=== PATIENT | female | born 1970 | race Caucasian/White ===

== ENCOUNTER 2024-06-02 22:46 | Emergency (ER) | payer OTHER, SELFPAY ==
[2024-06-02 23:03] VITALS: BP 118/99; PULSE 67; RESP 16; TEMP 36.4; O2SAT 98; BMI 35.5
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
--- NOTE | 2024-06-03 00:31 | PC.NURSE ---
Patient is alert and oriented x4. Patient reports generalized pain d/t fibromyalgia 5/10 at present, improving per patient. Patient given 2 warm blankets and tuna fish sandwich with shilpa kain, tolerated well. Call pierre in patient's reach.
--- NOTE | 2024-06-03 05:00 | PC.NURSE ---
report received from Peter SHAFER, assume care of pt at this time
--- NOTE | 2024-06-03 06:54 | PC.NURSE ---
report given to shona SHAFER
[2024-06-03 07:34] VITALS: BP 116/89; PULSE 66; RESP 18; TEMP 36.7; O2SAT 98
--- NOTE | 2024-06-03 07:34 | PC.NURSE ---
pt a&ox3, vss, pt to discharge home on hospital van, pt denies pain/discomfort
== END 2024-06-03 07:35 | disposition home or self-care (01) ==
PROVIDERS: Emergency Provider Emergency Medicine; PCP Internal Medicine
DX: R20.9 Unspecified disturbances of skin sensation (principal)
CPT/HCPCS: 99282; 99284

== ENCOUNTER 2024-06-15 23:44 | Inpatient (IN) | payer OTHER, SELFPAY ==
[2024-06-15 23:53] VITALS: BP 173/68; PULSE 73; RESP 18; TEMP 36.7; O2SAT 97; BMI 32.5
[2024-06-16] VITALS (9 sets, daily range): BP systolic 131–178; BP diastolic 59–97; PULSE 57–80; RESP 14–18; TEMP 36.3–37.2; O2SAT 93–97
--- NOTE | 2024-06-16 01:54 | ED_ITS ---
HPI - General Adult General Chief complaint: General Medical Stated complaint: body pain Time Seen by Provider: 06/16/24 01:12 Source: patient, RN notes reviewed and old records reviewed Mode of arrival: ambulatory Limitations: no limitations History of Present Illness ED Provider: Dominique LOCKHART narrative: 54-year-old female with past medical history significant for fibromyalgia, depression and ?mental health issues presents for evaluation of, I am homeless. ? Patient reports that she was evicted a couple of days ago. She states that she has been out in the cold. She reports that she is depressed, not actively having suicidal thoughts. She reports that a couple of days ago she was having suicidal thoughts while staring with a traffic She reports body pain all over that she attributes to fibromyalgia. She admits to using cocaine yesterday The patient reports that she walks with a walker due to her all over body pain She did not bring her walker with her Denies any chest pain, shortness of breath, abdominal pain, nausea vomiting Related Data Allergies Allergy/AdvReac Type Severity Reaction Status Date / Time No Known Allergies Allergy Verified 06/15/24 23:58 Review of Systems Constitutional: Constitutional: Reports body ache(s), Denies chills, Denies fever(s), Denies frequent falls and Denies headache(s) Eyes: Eyes: Denies blurry vision, Denies floaters and Denies irritation ENT: Denies vertigo, Denies dizziness and Denies headache(s) Cardiovascular: Cardiovascular: Denies chest pain and Denies dyspnea Respiratory: Respiratory: Denies cough and Denies dyspnea Gastrointestinal: Gastrointestinal: Denies abdominal pain, Denies nausea and Denies vomiting Musculoskeletal: Musculoskeletal: Reports back pain, Reports myalgias, Reports arthralgias and Denies limited range of motion Integumentary/Breasts: Skin/Breast: Denies rash Neurologic: Denies vertigo, Denies dizziness, Denies frequent falls and Denies headache(s) Psychiatric: Psychiatric: Denies anxiety PMFSH Past Medical History Medical History (Updated 06/16/24 @ 02:02 by Jae Fox) Fibromyalgia Social History Social History Alcohol intake: never Substance Use Type: Marijuana Advance Directives: No Advance Directives Information Provided: Yes Do you have a plan to hurt others: No Plan Physical Exam ED Vital Signs: Vital Signs - 24 hr 06/15/24 23:53 Temperature 98.1 F Pulse Rate 73 Respiratory Rate 18 Blood Pressure 173/68 H Pulse Oximetry 97 Oxygen Delivery Method Room Air BMI result Body Mass Index 32.5 Const Other: Disheveled appearing General: comfortable, no acute distress, alert and awake Nutritional Appearance: well nourished Orientation/consciousness: patient oriented x3 HENMT Head: Yes normocephalic and Yes atraumatic Eyes Eyelids: Yes eyelids normal Conjunctivae: conjunctivae normal Sclerae: sclerae normal Corneas: corneas normal Pupils: Equal, round and reactive pupils present EOM: EOMs intact bilaterally Neck Neck: Yes full ROM Resp Effort & Inspection: normal respiratory effort, able to speak in complete sentences and not labored Cardio Rate: regular rate Rhythm: regular rhythm GI Inspection: No distended Palpation (GI): Soft to palpation, not firm, nontender, no guarding and not rigid Skin General skin exam: elasticity normal Neuro General: patient oriented x3 Cranial nerves: Yes Equal, round and reactive pupils present and Yes Bilaterally intact EOM present Cognition (Neuro): normal cognition Extrem Other: Moving all extremities well without any obvious deformities Medical Decision Making Medical Decision Making MDM Narrative: 54-year-old female presents for evaluation of homelessness with depression. She reports all over body aches. There was no recent injury, she has no fevers or chills, vital signs are stable. The patient reports that she has fibromyalgia this is a lengthy cause of her body pain. Will check basic labs and urinalysis with tox screen for medical clearance the patient be referred to the care team for further evaluation of her depression. Again, the patient is not actively suicidal Differential Diagnosis Differential Diagnoses: The differential diagnosis associated with the presentation includes Depression Suicidal ideation Schizoaffective disorder Bipolar disorder Homelessness Substance abuse Discharge Plan Discharge Clinical Impression: Depression Patient Disposition: Still a Patient Print Language: Azerbaijani
[2024-06-16 02:23] LABS: MANUAL DIFF FLAG NO
[2024-06-16 02:25] LABS: Basophils Absolute Auto 0.1 X10*3/uL (0.0-0.2); Basophils Percent Auto 1.4 % (0-2); Eosinophils Absolute Auto 0.3 X10*3/uL (0.0-0.4); Eosinophils Percent Auto 4.1 % (0-4); Hematocrit 37.8 % (37.0-47.0); Hemoglobin 12.2 g/dl (12.0-16.0); Imm Gran Abs Auto 0.04 X10*3/uL (0.00-0.03); Imm Gran Pct Auto 0.5 % (0.0-0.4); Lymphocytes Absolute Auto 2.1 X10*3/uL (1.2-4.9); Lymphocytes Percent Auto 25.4 % (20-40); Mean Corpuscular HGB Conc 32.3 g/dl (31.0-35.0); Mean Corpuscular Hemoglobin 25.1 pg (27.0-33.0); Mean Corpuscular Volume 77.8 fL (80.0-98.0); Mean Platelet Volume 9.6 fL (9.4-12.3); Monocytes Absolute Auto 0.9 X10*3/uL (0.1-1.2); Monocytes Percent Auto 10.6 % (2-11); Neutrophils Absolute Auto 4.8 x10*3/uL (2.0-8.3); Platelet Count 534 X10*3/uL (160-400); Red Blood Count 4.86 X10*6/uL (4.20-5.50); Red Cell Distribution Width 15.4 % (11.0-16.0); White Blood Count 8.3 X10*3/uL (4.8-10.8)
[2024-06-16 02:41] LABS: Alanine Aminotransferase 9 U/L (0-31); Albumin Level 3.6 g/dL (3.5-5.0); Alkaline Phosphatase 91 U/L (39-117); Anion Gap 14 (12-20); Aspartate Amino Transferase 17 U/L (5-31); Bilirubin Total 0.6 mg/dL (0.0-1.0); Blood Urea Nitrogen 17 mg/dL (9-16); Calcium 9.7 mg/dL (8.4-10.2); Carbon Dioxide 25 mmol/L (22-29); Chloride 99 mmol/L (96-108); Creatinine Clr Calc Pharmacy 96.1; Estimated Glomerular Filt Rate > 60; Ethanol < 10 mg/dL; Glucose Random 105 mg/dL (60-115); Potassium 2.4 mmol/L (3.3-5.1); Sodium 136 mmol/L (135-145); Total Protein 6.7 g/dL (6.5-8.0)
[2024-06-16 02:44] LABS: Acetaminophen LAB < 3 mcg/mL (<30); Salicylate < 5.0 mg/dL (15-30)
--- NOTE | 2024-06-16 02:49 | ECG_ITS ---
Test Reason : k levels Blood Pressure : / mmHG Vent. Rate : 055 BPM Atrial Rate : 055 BPM P-R Int : 160 ms QRS Dur : 114 ms QT Int : 494 ms P-R-T Axes : 033 -46 026 degrees QTc Int : 472 ms Sinus bradycardia Left anterior fascicular block Moderate voltage criteria for LVH, may be normal variant ( R in aVL , [place] product ) Prolonged QT Abnormal ECG No previous ECGs available Referred By: Izaiah Dempsey Electronically Signed By:Desmond Montero
[2024-06-16 02:58] LABS: Magnesium 1.8 mg/dL (1.6-2.6)
[2024-06-16] MEDS: Potassium Bicarbonate/Cit AC 25 MEQ TABLET.EFF 50 MEQ PO (03:21)
[2024-06-16] MEDS: Potassium Chloride/H20 10 MEQ/100 ML PIGGYBACK 100 MEQ IV ×4 (03:22→06:52)
[2024-06-16 03:32] LABS: Appearance Urine Cloudy; Color Urine Yellow; Glucose Urine UA 100 mg/dL (Negative); Leukocyte Esterase Urine Small (1+) (Negative); Nitrite Urine Positive (Negative); PH 6.5 (5.0-9.0); Specific Gravity - Urine 1.015 (1.005-1.025); UMIC TRIGGER UA YES; Urine Blood Negative (Negative); Urine Ketones Negative (Negative); Urine Protein Trace mg/dL (Neg-Trace)
[2024-06-16 03:35] LABS: Bacteria Urine 4+ (None Seen); RBC Urine 0-2 /HPF (0-2); Squamous Epithelial Cell Urine 0-2 /HPF (0-2); WBC Urine 21-50 /HPF (0-5)
[2024-06-16 03:45] LABS: Amphetamine Screen Urine Not Detected (Not Detect); Barbiturates, Urine Not Detected (Not Detect); Benzodiazepines Screen Urine Not Detected (Not Detect); Buprenorphine Scr Not Detected (Not Detect); Cannabinoid Screen Urine POSITIVE (Not Detect); Cocaine Screen Urine POSITIVE (Not Detect); Fentanyl, urine Not Detected (Not Detect); Methadone Screen, Urine Not Detected (Not Detect); Opiate Screen Urine Not Detected (Not Detect); Oxycodone Screen Urine Not Detected (Not Detect); Phencyclidine Screen Urine Not Detected (Not Detect)
[2024-06-16] MEDS: cefTRIAXone sodium 1 GM VIAL IVPUSH (04:27)
--- NOTE | 2024-06-16 05:47 | PC.NURSE ---
pt assisted to bathroom by wheel chair. medicated by estrada, labs collected and sent.
[2024-06-16 05:53] LABS: Anion Gap 13 (12-20); Blood Urea Nitrogen 14 mg/dL (9-16); Calcium 9.2 mg/dL (8.4-10.2); Carbon Dioxide 27 mmol/L (22-29); Chloride 101 mmol/L (96-108); Estimated Glomerular Filt Rate > 60; Glucose Random 91 mg/dL (60-115); Potassium 2.6 mmol/L (3.3-5.1); Sodium 138 mmol/L (135-145)
--- NOTE | 2024-06-16 05:54 | PC.NURSE ---
critical lab reported to Dr. Gunter, new ordered placed.
[2024-06-16] MEDS: Potassium Chloride ER 20 MEQ TAB.ER.PRT 40 MEQ PO ×3 (06:01→10:59)
--- NOTE | 2024-06-16 06:03 | PC.NURSE ---
medicated per mar,
--- NOTE | 2024-06-16 07:24 | MHC.EDTECH ---
Assisted patient in/out wheelchair on/off toilet and back in bed.
--- NOTE | 2024-06-16 08:28 | PC.NURSE ---
Pt reporting feelings of SI during her crisis eval with care team, wanting to stay inpatient and get help with long-term placement. Per provider, one more chem draw to recheck potassium then medically clear. Pt changed over into safety clothing with security and belongings secured.
--- NOTE | 2024-06-16 08:32 | PC.NURSE ---
1:1 sitter at bedside
--- NOTE | 2024-06-16 09:13 | PC.NURSE ---
This RN attempted to do med rec, pt unable to call recall most meds or dosages, nothing on file here. Pharmacy contacted for help
--- NOTE | 2024-06-16 09:15 | MHC.CARE ---
Pt meets the criteria for IPLOC secondary to endorsing SI with numerous plans and intent. Pt is on a Section 12a and will be inpatient level of care. Provider in agreement.
[2024-06-16 09:22] LABS: Alanine Aminotransferase 6 U/L (0-31); Albumin Level 3.3 g/dL (3.5-5.0); Alkaline Phosphatase 79 U/L (39-117); Anion Gap 13 (12-20); Aspartate Amino Transferase 15 U/L (5-31); Bilirubin Total 0.6 mg/dL (0.0-1.0); Blood Urea Nitrogen 12 mg/dL (9-16); Calcium 8.4 mg/dL (8.4-10.2); Carbon Dioxide 25 mmol/L (22-29); Chloride 102 mmol/L (96-108); Creatinine Clr Calc Pharmacy 103.4; Estimated Glomerular Filt Rate > 60; Glucose Random 92 mg/dL (60-115); Potassium 2.8 mmol/L (3.3-5.1); Sodium 137 mmol/L (135-145); Total Protein 6.1 g/dL (6.5-8.0)
--- NOTE | 2024-06-16 10:11 | PHA.MEDREC ---
Pharmacy Consult ? Medication Reconciliation Pharmacy has completed the medication reconciliation. Nurse attempted med rec, patient was unsure of medications. Utilized list from [facility] to confirmed medications and claims.
--- NOTE | 2024-06-16 11:56 | MHC.EDTECH ---
Potasium level drawn as ordered by physician from left AC without difficulty and sent to lab. Pt tolerated well
[2024-06-16 12:06] LABS: Potassium 3.1 mmol/L (3.3-5.1)
--- NOTE | 2024-06-16 12:43 | PC.NURSE ---
Assumed care of patient at 1230, patient appears to be in no apparent distress, sleeping at this time, respirations even and unlabored. Pt endorsed SI while in the emergency department. Pt walks with steady gait utlizing walker
[2024-06-16] MEDS: Potassium Chloride ER 20 MEQ TAB.ER.PRT PO (14:12)
--- NOTE | 2024-06-16 15:21 | PC.NURSE ---
Patient resting, provided with additional pillows and blankets per request. Offers no complaints to this RN at this time
[2024-06-16 16:00] LABS: Potassium 3.5 mmol/L (3.3-5.1)
[2024-06-16] MEDS: ALPRAZolam 0.5 MG TABLET 2 MG PO (16:41)
[2024-06-16] MEDS: Gabapentin 600 MG TABLET PO ×2 (16:42→20:19)
[2024-06-16] MEDS: Baclofen 20 MG TABLET PO (20:19)
[2024-06-16] MEDS: Propranolol HCL LA 60 MG CAP.SA.24H PO (20:26)
--- NOTE | 2024-06-17 | ECG_ITS ---
Test Reason : REPEAT AFTER POTASSIUM Blood Pressure : / mmHG Vent. Rate : 054 BPM Atrial Rate : 054 BPM P-R Int : 146 ms QRS Dur : 088 ms QT Int : 454 ms P-R-T Axes : 013 -52 055 degrees QTc Int : 430 ms Sinus bradycardia Left anterior fascicular block Abnormal ECG When compared with ECG of 16-JUN-2024 03:33, QRS duration has decreased Nonspecific T wave abnormality no longer evident in Inferior leads T wave inversion no longer evident in Anterior leads Referred By: Gareth Oropeza Electronically Signed By:Desmond Montero
[2024-06-17] MEDS: Pantoprazole Sodium 20 MG TABLET.DR 40 MG PO (06:18)
[2024-06-17] MEDS: Levothyroxine Sodium 125 MCG TABLET PO (06:18)
[2024-06-17 06:20] VITALS: BP 144/83; PULSE 63; RESP 16; TEMP 36.8; O2SAT 97
--- NOTE | 2024-06-17 07:15 | PC.NURSE ---
Assumed care of patient at 0645, patient appears to be sleeping, respirations even and unlabored, no apparent distress noted. Continue plan of care for inpatient bedsearch
[2024-06-17] MEDS: Gabapentin 600 MG TABLET PO ×3 (08:54→21:04)
[2024-06-17] MEDS: DULoxetine HCl 60 MG CAPSULE.DR PO (08:54)
[2024-06-17] MEDS: ALPRAZolam 0.5 MG TABLET 2 MG PO ×2 (09:19→15:13)
[2024-06-17] MEDS: Baclofen 20 MG TABLET PO ×2 (09:19→21:04)
[2024-06-17 11:41] LABS: MANUAL DIFF FLAG NO
[2024-06-17 11:42] LABS: Basophils Absolute Auto 0.1 X10*3/uL (0.0-0.2); Basophils Percent Auto 1.1 % (0-2); Eosinophils Absolute Auto 0.2 X10*3/uL (0.0-0.4); Eosinophils Percent Auto 2.2 % (0-4); Hematocrit 39.6 % (37.0-47.0); Hemoglobin 12.5 g/dl (12.0-16.0); Imm Gran Abs Auto 0.05 X10*3/uL (0.00-0.03); Imm Gran Pct Auto 0.7 % (0.0-0.4); Lymphocytes Absolute Auto 2.2 X10*3/uL (1.2-4.9); Lymphocytes Percent Auto 30.1 % (20-40); Mean Corpuscular HGB Conc 31.6 g/dl (31.0-35.0); Mean Corpuscular Hemoglobin 25.6 pg (27.0-33.0); Mean Platelet Volume 9.7 fL (9.4-12.3); Monocytes Absolute Auto 0.6 X10*3/uL (0.1-1.2); Monocytes Percent Auto 8.2 % (2-11); Neutrophils Absolute Auto 4.3 x10*3/uL (2.0-8.3); Neutrophils Percent Auto 57.7 % (45-73); Platelet Count 510 X10*3/uL (160-400); Red Blood Count 4.89 X10*6/uL (4.20-5.50); Red Cell Distribution Width 16.2 % (11.0-16.0); White Blood Count 7.4 X10*3/uL (4.8-10.8)
[2024-06-17 12:13] LABS: Alanine Aminotransferase 7 U/L (0-31); Albumin Level 3.4 g/dL (3.5-5.0); Alkaline Phosphatase 83 U/L (39-117); Anion Gap 12 (12-20); Aspartate Amino Transferase 19 U/L (5-31); Bilirubin Total 0.2 mg/dL (0.0-1.0); Blood Urea Nitrogen 12 mg/dL (9-16); Calcium 10.4 mg/dL (8.4-10.2); Carbon Dioxide 30 mmol/L (22-29); Chloride 101 mmol/L (96-108); Creatinine Clr Calc Pharmacy 87.9; Estimated Glomerular Filt Rate > 60; Glucose Random 104 mg/dL (60-115); Potassium 5.1 mmol/L (3.3-5.1); Sodium 138 mmol/L (135-145); Total Protein 6.6 g/dL (6.5-8.0)
[2024-06-17 15:00] VITALS: BP 187/94; PULSE 66
[2024-06-17] MEDS: Acetaminophen 325 MG TABLET 650 MG PO (15:13)
[2024-06-17 15:59] VITALS: BP 173/84; PULSE 67
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
[2024-06-17 20:00] VITALS: BP 137/83; PULSE 73; RESP 16; TEMP 36.6; O2SAT 95
[2024-06-17] MEDS: Nicotine Polacrilex 2 MG GUM 4 MG BUCCAL (21:03)
[2024-06-17] MEDS: Ondansetron ODT 8 MG TAB.RAPDIS TRANSLINGU (21:03)
[2024-06-17] MEDS: Zolpidem Tartrate 5 MG TABLET 10 MG PO (21:04)
[2024-06-17] MEDS: Propranolol HCL LA 60 MG CAP.SA.24H PO (21:04)
[2024-06-17] MEDS: hydrOXYzine HCL 25 MG TABLET PO (21:04)
[2024-06-18] MEDS: Levothyroxine Sodium 125 MCG TABLET PO (06:40)
[2024-06-18] MEDS: Pantoprazole Sodium 20 MG TABLET.DR 40 MG PO (07:00)
[2024-06-18 07:30] VITALS: BP 142/79; PULSE 60; RESP 16; TEMP 37.6; O2SAT 91
[2024-06-18] MEDS: Gabapentin 600 MG TABLET PO ×3 (08:39→20:28)
[2024-06-18] MEDS: DULoxetine HCl 60 MG CAPSULE.DR PO (08:39)
[2024-06-18] MEDS: Baclofen 20 MG TABLET PO ×2 (08:39→20:27)
[2024-06-18] MEDS: Cholecalciferol (Vitamin D3) 10 MCG TABLET PO (08:39)
[2024-06-18] MEDS: ALPRAZolam 0.5 MG TABLET 2 MG PO (08:46)
[2024-06-18 09:08] LABS: Alanine Aminotransferase < 6 U/L (0-31); Albumin Level 3.2 g/dL (3.5-5.0); Alkaline Phosphatase 79 U/L (39-117); Anion Gap 10 (12-20); Aspartate Amino Transferase 12 U/L (5-31); Bilirubin Total 0.4 mg/dL (0.0-1.0); Blood Urea Nitrogen 16 mg/dL (9-16); Calcium 9.3 mg/dL (8.4-10.2); Carbon Dioxide 32 mmol/L (22-29); Chloride 101 mmol/L (96-108); Cholesterol 167 mg/dL (<200); Creatinine Clr Calc Pharmacy 77.9; Estimated Glomerular Filt Rate 55; Glucose Fasting 101 mg/dL (60-99); HDL Cholesterol 48 mg/dL (>40); LDL Cholesterol Calculated 90 mg/dL (<100); Potassium 4.7 mmol/L (3.3-5.1); Sodium 138 mmol/L (135-145); Total Protein 6.1 g/dL (6.5-8.0); Triglycerides 149 mg/dL (<150)
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
[2024-06-18] MEDS: ALPRAZolam 0.5 MG TABLET 1 MG PO ×2 (16:19→20:27)
[2024-06-18 17:44] LABS: Appearance Urine Cloudy; Color Urine Yellow; Glucose Urine UA 100 mg/dL (Negative); Leukocyte Esterase Urine Large (3+) (Negative); Nitrite Urine Negative (Negative); Specific Gravity - Urine 1.015 (1.005-1.025); UMIC TRIGGER UACC YES; Urine Blood Negative (Negative); Urine Ketones Negative (Negative); Urine Protein 30 (1+) mg/dL (Neg-Trace)
[2024-06-18 17:46] LABS: Bacteria Urine 2+ (None Seen); Hyaline Casts Urine 0-2 /LPF (0-2); RBC Urine 0-2 /HPF (0-2); UACC Culture Trigger YES; WBC Urine >50 /HPF (0-5)
[2024-06-18] MEDS: Phenazopyridine HCL 100 MG TABLET PO (18:39)
[2024-06-18 20:00] VITALS: BP 173/85; PULSE 81; RESP 12; TEMP 36.6; O2SAT 95
[2024-06-18] MEDS: Zolpidem Tartrate 5 MG TABLET 10 MG PO (20:27)
[2024-06-18] MEDS: Propranolol HCL LA 60 MG CAP.SA.24H PO (20:27)
[2024-06-18] MEDS: Nitrofurantoin Monohyd/M-Cryst 100 MG CAPSULE PO (20:27)
[2024-06-19] MEDS: Levothyroxine Sodium 125 MCG TABLET PO (06:00)
[2024-06-19] MEDS: Pantoprazole Sodium 20 MG TABLET.DR 40 MG PO (06:32)
[2024-06-19 07:00] VITALS: BMI 28.3
[2024-06-19 07:25] VITALS: BP 137/77; PULSE 62; RESP 14; TEMP 36.7; O2SAT 96
[2024-06-19] MEDS: DULoxetine HCl 60 MG CAPSULE.DR PO (08:16)
[2024-06-19] MEDS: Baclofen 20 MG TABLET PO ×2 (08:16→20:28)
[2024-06-19] MEDS: Nitrofurantoin Monohyd/M-Cryst 100 MG CAPSULE PO ×2 (08:16→20:28)
[2024-06-19] MEDS: ALPRAZolam 0.5 MG TABLET 1 MG PO ×3 (08:16→20:27)
[2024-06-19] MEDS: Gabapentin 600 MG TABLET PO ×3 (08:16→20:26)
[2024-06-19] MEDS: Cholecalciferol (Vitamin D3) 10 MCG TABLET PO (08:17)
[2024-06-19] MEDS: Nicotine Polacrilex 2 MG GUM 4 MG BUCCAL (08:20)
--- NOTE | 2024-06-19 09:48 | P.PNPSI_ITS ---
Subjective Subjective Date of Service: 06/19/24 Reason For Visit: depression with si Subjective Notes: Conditional Voluntary Interim History: Active on unit, attending groups. Pt continues to report feeling anxious and depressed ; pt stated, I'm worried about where I'm going to go from here . Per nursing, pt slept 6 hours. denies SI/HI/VH/AH. Medication Compliance: Yes Side effects from medications: No Attending Groups: Yes Review of Systems Constitutional: Reports as per HPI Eyes: Reports as per HPI Reports as per HPI Cardiovascular: Reports as per HPI Respiratory: Reports as per HPI Gastrointestinal: Reports as per HPI Genitourinary: Reports as per HPI Musculoskeletal: Reports as per HPI Skin/Breast: Reports as per HPI Reports as per HPI Psychiatric: Reports as per HPI Endocrine: Reports as per HPI Hematologic/Lymphatic: Reports as per HPI Allergic/Immunologic: Reports as per HPI Mental Status Exam Mental Status Exam Narrative: Pt is alert and oriented; behavior is cooperative; dressed in casual attire; mood is described as anxious and depressed ; eye contact appropriate; Speech is normal rate, volume and not pressured; thought process is organized and goal directed; Thought content is on tx; otherwise pertinent to relevant topics and without any delusional content, paranoid ideations or grandiosity; denies SI/HI/VH/AH. Diagnostics Vital Signs (24Hr): Vital Signs - 24 hr 06/18/24 20:00 06/19/24 07:25 Temperature 98 F 98.0 F Pulse Rate 81 62 Respiratory Rate 12 14 Blood Pressure 173/85 H 137/77 Pulse Oximetry 95 96 Oxygen Delivery Method Room Air Room Air BMI result Body Mass Index 32.5 Labs 06/17/24 11:32 06/18/24 08:13 Labs: Laboratory Results - last 48 hr 06/17/24 06/18/24 06/18/24 11:32 08:13 17:30 WBC 7.4 RBC 4.89 Hgb 12.5 Hct 39.6 MCV 81.0 MCH 25.6 L MCHC 31.6 RDW 16.2 H Plt Count 510 H MPV 9.7 Immature Gran % (Auto) 0.7 H Neut % (Auto) 57.7 Lymph % (Auto) 30.1 [place] % (Auto) 8.2 Eos % (Auto) 2.2 Baso % (Auto) 1.1 Lymph # (Auto) 2.2 [place] # (Auto) 0.6 Eos # (Auto) 0.2 Baso # (Auto) 0.1 Abs Immat Gran (auto) 0.05 H Absolute Neuts (auto) 4.3 Absolute Nucleated RBC 0.000 Nucleated RBC % (auto) 0.0 Sodium 138 138 Potassium 5.1 D 4.7 Chloride 101 101 Carbon Dioxide 30 H 32 H Anion Gap 12 10 L BUN 12 16 Creatinine 0.93 1.05 Estim Creat Clear Calc 87.9 77.9 Estimated GFR > 60 55 Random Glucose 104 Fasting Glucose 101 H Calcium 10.4 H D 9.3 D Total Bilirubin 0.2 0.4 AST 19 12 ALT 7 < 6 Alkaline Phosphatase 83 79 Total Protein 6.6 6.1 L Albumin 3.4 L 3.2 L Triglycerides 149 Cholesterol 167 LDL Cholesterol, Calc 90 HDL Cholesterol 48 Urine Color Yellow Urine Appearance Cloudy Urine pH 8.0 Ur Specific [place] 1.015 Urine Protein 30 (1+) H Urine Glucose (UA) 100 H Urine Ketones Negative Urine Blood Negative Urine Nitrite Negative Ur Leukocyte Esterase Large (3+) H Urine RBC 0-2 Urine WBC >50 H Ur Squamous Epith Cells 6-10 Urine Bacteria 2+ Hyaline Casts 0-2 Medications Medications Current Medications Acetaminophen (Acetaminophen 325 Mg Tablet) 650 mg PO Q6H PRN PRN Reason: Headache/Pain Mild Scale (1-3) Last Admin: 06/17/24 15:13 Dose: 650 mg Al Hydroxide/Mg Hydroxide (Magnesium Hydrox/Alum Hydrox 30 Ml Oral.Susp) 30 ml PO Q6H PRN PRN Reason: Heartburn/Nausea Alprazolam (Alprazolam 0.5 Mg Tablet) 1 mg PO TID PRN PRN Reason: Anxiety Alprazolam (Alprazolam 0.5 Mg Tablet) 1 mg PO TID [facility] Last Admin: 06/19/24 08:16 Dose: 1 mg Baclofen (Baclofen 20 Mg Tablet) 20 mg PO BID [facility] Last Admin: 06/19/24 08:16 Dose: 20 mg Duloxetine HCl (Duloxetine Hcl 60 Mg Capsule.Dr) 60 mg PO DAILY [facility] Last Admin: 06/19/24 08:16 Dose: 60 mg Gabapentin (Gabapentin 600 Mg Tablet) 600 mg PO TID [facility] Last Admin: 06/19/24 08:16 Dose: 600 mg Hydroxyzine HCl (Hydroxyzine Hcl 25 Mg Tablet) 25 mg PO Q6H PRN PRN Reason: Anxiety Last Admin: 06/17/24 21:04 Dose: 25 mg Levothyroxine Sodium (Levothyroxine Sodium 125 Mcg Tablet) 125 mcg PO DAILY@0600 [facility] Last Admin: 06/19/24 06:00 Dose: 125 mcg Magnesium Hydroxide (Milk Of Magnesia 30 Ml Oral.Susp) 30 ml PO DAILY PRN PRN Reason: Constipation Melatonin (Melatonin 3 Mg Tablet) 3 mg PO BEDTIME PRN PRN Reason: Insomnia Nicotine (Nicotine 21 Mg Patch.Td24) 21 mg TRANSDERMA DAILY [facility] Last Admin: 06/19/24 08:17 Dose: Not Given Nicotine Polacrilex (Nicotine Polacrilex 2 Mg Gum) 4 mg BUCCAL Q2H PRN PRN Reason: Nicotine Cravings Last Admin: 06/19/24 08:20 Dose: 4 mg Nitrofurantoin Macrocrystals (Nitrofurantoin Monohyd/M-Cryst 100 Mg Capsule) 100 mg PO BID [facility] Stop: 06/24/24 21:00 Last Admin: 06/19/24 08:16 Dose: 100 mg Ondansetron HCl (Ondansetron Odt 8 Mg Tab.Rapdis) 8 mg TRANSLINGU Q12H PRN PRN Reason: Nausea and Vomiting Last Admin: 06/17/24 21:03 Dose: 8 mg Pantoprazole Sodium (Pantoprazole Sodium 20 Mg Tablet.Dr) 40 mg PO DAILY@0630 [facility] Last Admin: 06/19/24 06:32 Dose: 40 mg Phenazopyridine HCl (Phenazopyridine Hcl 100 Mg Tablet) 100 mg PO BIDWM PRN PRN Reason: UTI pain/discomfort Stop: 06/20/24 18:11 Last Admin: 06/18/24 18:39 Dose: 100 mg Propranolol HCl (Propranolol Hcl La 60 Mg Cap.Sa.24h) 60 mg PO BEDTIME [facility]; Protocol Last Admin: 06/18/24 20:27 Dose: 60 mg Trazodone HCl (Trazodone Hcl 50 Mg Tablet) 50 mg PO BEDTIME MRX1 PRN PRN Reason: Insomnia Vitamin D (Cholecalciferol (Vitamin D3) 10 Mcg Tablet) 10 mcg PO DAILY [facility] Last Admin: 06/19/24 08:17 Dose: 10 mcg Zolpidem Tartrate (Zolpidem Tartrate 5 Mg Tablet) 10 mg PO BEDTIME PRN PRN Reason: Insomnia Last Admin: 06/18/24 20:27 Dose: 10 mg Allergies Allergies Allergy/AdvReac Type Severity Reaction Status Date / Time No Known Allergies Allergy Verified 06/15/24 23:58 Assessment & Plan Assessment & Plan (1) Major depressive disorder, recurrent severe without psychotic features: Status: Acute Code(s): F33.2 - Major depressive disorder, recurrent severe without psychotic features (2) Post traumatic stress disorder (PTSD): Status: Acute Code(s): F43.10 - Post-traumatic stress disorder, unspecified (3) Fibromyalgia: Status: Acute Code(s): M79.7 - Fibromyalgia (4) Homeless: Status: Acute Code(s): Z59.00 - Homelessness unspecified Plan PATIENT WITH WORSENING ISOLATION THOUGHTS OF SUICIDE MULTIPLE PSYCHOSOCIAL STRESSORS REPORTED RECENT BRIEF COCAINE RELAPSE CONTINUE AT PRESENT ALPRAZOLAM DULOXETINE PATIENT REQUIRES INPATIENT TREATMENT FOR SAFETY AND STABILIZATION. PATIENT TEARFUL DEPRESSED OVERWHELMED AGITATED UNCLEAR EXACTLY WHY SHE IS USING A WALKER HISTORY OF FIBROMYALGIA LONG HISTORY OF DEPRESSION PTSD AT CURRENT RISK OF SUICIDE NOT IN A LOCKED SETTING . RECENT HYPOKALEMIA UNCLEAR ETIOLOGY WILL FOLLOW. HAS BEEN TREATED BY PC P WILL TRY AND GET ADDITIONAL INFORMATION. PATIENT HOPING TO REFERRED BACK TO PROGRAM ENGAGEMENT DIRECTOR. RESTART MED EDUCATION CONSIDER AUGMENTATION STRATEGIES MOST LIKELY WOULD BENEFIT FROM DECREASE IN ALPRAZOLAM DENIES ABUSE OR TOLERANCE ALSO ON GABAPENTIN ADMIT CONDITIONAL VOLUNTARY 5 MINUTE CHECK PT CONSULT MEDICATIONS NOTED CONSIDER AUGMENTATION WITH ABILIFY/SEROQUEL MONITOR SAFETY 06/19: Active on unit, attending groups. ambulates with walker, 5 minute safety checks. Pt continues to report feeling anxious and depressed ; pt stated, I'm worried about where I'm going to go from here . Per nursing, pt slept 6 hours. denies SI/HI/VH/AH Patient educated on: diagnosis, medication risk/benefits and therapeutic strategies Reason for continued inpatient stay Substantial Risk for: med/psych decompensation Time Spent With Patient Time: Total time managing care of this patient today _20___ minutes.
[2024-06-19] MEDS: Acetaminophen 325 MG TABLET 650 MG PO (12:41)
[2024-06-19 20:00] VITALS: BP 182/79; PULSE 78; RESP 16; TEMP 37.1; O2SAT 96
[2024-06-19] MEDS: Propranolol HCL LA 60 MG CAP.SA.24H PO (20:27)
[2024-06-19] MEDS: hydrOXYzine HCL 25 MG TABLET PO (20:28)
[2024-06-19] MEDS: Zolpidem Tartrate 5 MG TABLET 10 MG PO (20:28)
[2024-06-19] MEDS: Magnesium Hydrox/Alum Hydrox 30 ML ORAL.SUSP PO (20:31)
[2024-06-19 21:00] VITALS: BP 160/83
[2024-06-20] MEDS: Levothyroxine Sodium 125 MCG TABLET PO (05:50)
[2024-06-20] MEDS: Pantoprazole Sodium 20 MG TABLET.DR 40 MG PO (06:26)
[2024-06-20 07:34] VITALS: BP 174/86; PULSE 67; RESP 16; TEMP 36.6; O2SAT 98
--- NOTE | 2024-06-20 08:55 | HO.PSYCHPN ---
Subjective Subjective Date of Service: 06/20/24 Reason For Visit: depression with si Subjective Notes: Conditional Voluntary Interim History: Pt continues to be anxious about where she will go after discharge. Patient stated, the social media designer put in referrals for the [facility] and respite but if I don't get a bed then I'll go to the group home . Per nursing, pt slept 8 hours. attending groups, social with peers. denies SI/HI/VH/AH. Medication Compliance: Yes Side effects from medications: No Attending Groups: Yes Review of Systems Constitutional: Reports as per HPI Eyes: Reports as per HPI Reports as per HPI Cardiovascular: Reports as per HPI Respiratory: Reports as per HPI Gastrointestinal: Reports as per HPI Musculoskeletal: Reports as per HPI Skin/Breast: Reports as per HPI Reports as per HPI Psychiatric: Reports as per HPI Endocrine: Reports as per HPI Hematologic/Lymphatic: Reports as per HPI Allergic/Immunologic: Reports as per HPI Mental Status Exam Mental Status Exam Narrative: Pt is alert and oriented; behavior is cooperative; dressed in casual attire; mood is described as anxious ; eye contact appropriate; Speech is normal rate, volume and not pressured; thought process is organized and goal directed; Thought content is on tx; otherwise pertinent to relevant topics and without any delusional content, paranoid ideations or grandiosity; denies SI/HI/VH/AH. Diagnostics Vital Signs (24Hr): Vital Signs - 24 hr 06/19/24 20:00 06/19/24 21:00 06/20/24 07:34 Temperature 98.7 F 97.8 F Pulse Rate 78 67 Respiratory Rate 16 16 Blood Pressure 182/79 H 160/83 H 174/86 H Pulse Oximetry 96 98 Oxygen Delivery Method Room Air Room Air BMI result Body Mass Index 28.3 Labs 06/17/24 11:32 06/18/24 08:13 Labs: Laboratory Results - last 48 hr 06/18/24 06/18/24 08:13 17:30 Sodium 138 Potassium 4.7 Chloride 101 Carbon Dioxide 32 H Anion Gap 10 L BUN 16 Creatinine 1.05 Estim Creat Clear Calc 77.9 Estimated GFR 55 Fasting Glucose 101 H Calcium 9.3 D Total Bilirubin 0.4 AST 12 ALT < 6 Alkaline Phosphatase 79 Total Protein 6.1 L Albumin 3.2 L Triglycerides 149 Cholesterol 167 LDL Cholesterol, Calc 90 HDL Cholesterol 48 Urine Color Yellow Urine Appearance Cloudy Urine pH 8.0 Ur Specific [place] 1.015 Urine Protein 30 (1+) H Urine Glucose (UA) 100 H Urine Ketones Negative Urine Blood Negative Urine Nitrite Negative Ur Leukocyte Esterase Large (3+) H Urine RBC 0-2 Urine WBC >50 H Ur Squamous Epith Cells 6-10 Urine Bacteria 2+ Hyaline Casts 0-2 Medications Medications Current Medications Acetaminophen (Acetaminophen 325 Mg Tablet) 650 mg PO Q6H PRN PRN Reason: Headache/Pain Mild Scale (1-3) Last Admin: 06/19/24 12:41 Dose: 650 mg Al Hydroxide/Mg Hydroxide (Magnesium Hydrox/Alum Hydrox 30 Ml Oral.Susp) 30 ml PO Q6H PRN PRN Reason: Heartburn/Nausea Last Admin: 06/19/24 20:31 Dose: 30 ml Alprazolam (Alprazolam 0.5 Mg Tablet) 1 mg PO TID PRN PRN Reason: Anxiety Alprazolam (Alprazolam 0.5 Mg Tablet) 1 mg PO TID [facility] Last Admin: 06/19/24 20:27 Dose: 1 mg Baclofen (Baclofen 20 Mg Tablet) 20 mg PO BID [facility] Last Admin: 06/19/24 20:28 Dose: 20 mg Diclofenac Sodium (Diclofenac Sodium Delayed Rel 50 Mg Tablet.) 50 mg PO BID [facility] Duloxetine HCl (Duloxetine Hcl 60 Mg Capsule.) 60 mg PO DAILY [facility] Last Admin: 06/19/24 08:16 Dose: 60 mg Gabapentin (Gabapentin 600 Mg Tablet) 600 mg PO TID [facility] Last Admin: 06/19/24 20:26 Dose: 600 mg Hydroxyzine HCl (Hydroxyzine Hcl 25 Mg Tablet) 25 mg PO Q6H PRN PRN Reason: Anxiety Last Admin: 06/19/24 20:28 Dose: 25 mg Levothyroxine Sodium (Levothyroxine Sodium 125 Mcg Tablet) 125 mcg PO DAILY@0600 [facility] Last Admin: 06/20/24 05:50 Dose: 125 mcg Magnesium Hydroxide (Milk Of Magnesia 30 Ml Oral.Susp) 30 ml PO DAILY PRN PRN Reason: Constipation Melatonin (Melatonin 3 Mg Tablet) 3 mg PO BEDTIME PRN PRN Reason: Insomnia Nicotine (Nicotine 21 Mg Patch.Td24) 21 mg TRANSDERMA DAILY [facility] Last Admin: 06/19/24 08:17 Dose: Not Given Nicotine Polacrilex (Nicotine Polacrilex 2 Mg Gum) 4 mg BUCCAL Q2H PRN PRN Reason: Nicotine Cravings Last Admin: 06/19/24 08:20 Dose: 4 mg Nitrofurantoin Macrocrystals (Nitrofurantoin Monohyd/M-Cryst 100 Mg Capsule) 100 mg PO BID [facility] Stop: 06/24/24 21:00 Last Admin: 06/19/24 20:28 Dose: 100 mg Ondansetron HCl (Ondansetron Odt 8 Mg Tab.Rapdis) 8 mg TRANSLINGU Q12H PRN PRN Reason: Nausea and Vomiting Last Admin: 06/17/24 21:03 Dose: 8 mg Pantoprazole Sodium (Pantoprazole Sodium 20 Mg Tablet.Dr) 40 mg PO DAILY@0630 [facility] Last Admin: 06/20/24 06:26 Dose: 40 mg Phenazopyridine HCl (Phenazopyridine Hcl 100 Mg Tablet) 100 mg PO BIDWM PRN PRN Reason: UTI pain/discomfort Stop: 06/20/24 18:11 Last Admin: 06/18/24 18:39 Dose: 100 mg Propranolol HCl (Propranolol Hcl La 60 Mg Cap.Sa.24h) 60 mg PO BEDTIME [facility]; Protocol Last Admin: 06/19/24 20:27 Dose: 60 mg Trazodone HCl (Trazodone Hcl 50 Mg Tablet) 50 mg PO BEDTIME MRX1 PRN PRN Reason: Insomnia Vitamin D (Cholecalciferol (Vitamin D3) 10 Mcg Tablet) 10 mcg PO DAILY [facility] Last Admin: 06/19/24 08:17 Dose: 10 mcg Zolpidem Tartrate (Zolpidem Tartrate 5 Mg Tablet) 10 mg PO BEDTIME PRN PRN Reason: Insomnia Last Admin: 06/19/24 20:28 Dose: 10 mg Allergies Allergies Allergy/AdvReac Type Severity Reaction Status Date / Time No Known Allergies Allergy Verified 06/15/24 23:58 Assessment & Plan Assessment & Plan (1) Major depressive disorder, recurrent severe without psychotic features: Status: Acute Code(s): F33.2 - Major depressive disorder, recurrent severe without psychotic features (2) Post traumatic stress disorder (PTSD): Status: Acute Code(s): F43.10 - Post-traumatic stress disorder, unspecified (3) Fibromyalgia: Status: Acute Code(s): M79.7 - Fibromyalgia (4) Homeless: Status: Acute Code(s): Z59.00 - Homelessness unspecified Plan PATIENT WITH WORSENING ISOLATION THOUGHTS OF SUICIDE MULTIPLE PSYCHOSOCIAL STRESSORS REPORTED RECENT BRIEF COCAINE RELAPSE CONTINUE AT PRESENT ALPRAZOLAM DULOXETINE PATIENT REQUIRES INPATIENT TREATMENT FOR SAFETY AND STABILIZATION. PATIENT TEARFUL DEPRESSED OVERWHELMED AGITATED UNCLEAR EXACTLY WHY SHE IS USING A WALKER HISTORY OF FIBROMYALGIA LONG HISTORY OF DEPRESSION PTSD AT CURRENT RISK OF SUICIDE NOT IN A LOCKED SETTING . RECENT HYPOKALEMIA UNCLEAR ETIOLOGY WILL FOLLOW. HAS BEEN TREATED BY PC P WILL TRY AND GET ADDITIONAL INFORMATION. PATIENT HOPING TO REFERRED BACK TO TIRE SPOTTER. RESTART MED EDUCATION CONSIDER AUGMENTATION STRATEGIES MOST LIKELY WOULD BENEFIT FROM DECREASE IN ALPRAZOLAM DENIES ABUSE OR TOLERANCE ALSO ON GABAPENTIN ADMIT CONDITIONAL VOLUNTARY 5 MINUTE CHECK PT CONSULT MEDICATIONS NOTED CONSIDER AUGMENTATION WITH ABILIFY/SEROQUEL MONITOR SAFETY 06/19: Active on unit, attending groups. ambulates with walker, 5 minute safety checks. Pt continues to report feeling anxious and depressed ; pt stated, I'm worried about where I'm going to go from here . Per nursing, pt slept 6 hours. denies SI/HI/VH/AH. 06/20: Pt continues to be anxious about where she will go after discharge. Patient stated, the social media designer put in referrals for the [facility] and respite but if I don't get a bed then I'll go to the group home . Per nursing, pt slept 8 hours. attending groups, social with peers. denies SI/HI/VH/AH. Continue current tx plan. Patient educated on: diagnosis, medication risk/benefits and therapeutic strategies Reason for continued inpatient stay Substantial Risk for: med/psych decompensation Time Spent With Patient Time: Total time managing care of this patient today _20___ minutes.
[2024-06-20] MEDS: Diclofenac Sodium Delayed Rel 50 MG TABLET.DR PO ×2 (09:04→20:18)
[2024-06-20] MEDS: ALPRAZolam 0.5 MG TABLET 1 MG PO ×3 (09:04→20:14)
[2024-06-20] MEDS: Nitrofurantoin Monohyd/M-Cryst 100 MG CAPSULE PO ×2 (09:04→20:17)
[2024-06-20] MEDS: Gabapentin 600 MG TABLET PO ×3 (09:04→20:19)
[2024-06-20] MEDS: Cholecalciferol (Vitamin D3) 10 MCG TABLET PO (09:05)
[2024-06-20] MEDS: DULoxetine HCl 60 MG CAPSULE.DR PO (09:05)
[2024-06-20] MEDS: Baclofen 20 MG TABLET PO ×2 (09:05→20:20)
[2024-06-20] MEDS: Nicotine Polacrilex 2 MG GUM 4 MG BUCCAL (09:08)
[2024-06-20] MEDS: Magnesium Hydrox/Alum Hydrox 30 ML ORAL.SUSP PO (14:06)
[2024-06-20 20:12] VITALS: BP 113/60; PULSE 69; RESP 17; TEMP 36.9; O2SAT 91
[2024-06-20] MEDS: Propranolol HCL LA 60 MG CAP.SA.24H PO (20:13)
[2024-06-20] MEDS: Zolpidem Tartrate 5 MG TABLET 10 MG PO (20:13)
[2024-06-20] MEDS: hydrOXYzine HCL 25 MG TABLET PO (20:15)
[2024-06-20] MEDS: traZODone HCL 50 MG TABLET PO (20:43)
[2024-06-20 23:54] VITALS: BP 149/74; PULSE 59; RESP 18; TEMP 36.6; O2SAT 97
--- NOTE | 2024-06-21 00:05 | PC.NURSE ---
At approximately 2345 on 06/20/24, [facility] [place] staff radiation therapist that patient had fallen in bathroom. Patient got herself up prior to nursing staff reaching the room. Upon assessment, patient fallen on hands and knees after losing balance due to slipper socks falling off her feet. She denies dizziness. No reports of pain or injury. Range of motion provided to assess for pain. Vital signs stable, negative orthostatics. Patient ambulated back to bed without issue.
[2024-06-21 00:12] VITALS: BP 149/74; PULSE 59; RESP 18; TEMP 36.6; O2SAT 97
[2024-06-21] MEDS: traZODone HCL 50 MG TABLET PO ×2 (01:42→20:32)
[2024-06-21] MEDS: Melatonin 3 MG TABLET PO ×2 (01:42→20:32)
[2024-06-21] MEDS: Levothyroxine Sodium 125 MCG TABLET PO (05:59)
[2024-06-21] MEDS: Pantoprazole Sodium 20 MG TABLET.DR 40 MG PO (06:29)
[2024-06-21 07:20] VITALS: BP 90/57; PULSE 71; RESP 14; TEMP 36.5; O2SAT 97
--- NOTE | 2024-06-21 08:20 | P.PNPSI_ITS ---
Subjective Subjective Date of Service: 06/21/24 Reason For Visit: depression with si Subjective Notes: Conditional Voluntary Interim History: The nursing staff reported that last night the patient sleep and fell but she did not injure her head. He had been medication compliant she has attended few groups. At this moment she still on antibiotics for UTI. She reports anxiety and depression high. The staff reported that yesterday she was withdrawn in the afternoon and she got really upset when she found out that she was taking Xanax 2 mg and now she is on 1 mg. She slept 5 hours. On interview the patient denies new symptoms she still upset that they have been tapering her Xanax without her consent. Mental Status Exam Mental Status Exam Patient Appearance: Well Grooomed and Appropriate Patient Orientation: Person and Situation Level of Consciousness: Awake Patient Behavior: Cooperative Mood Description: Calm Affect Description: Constricted Patient Cognition Impaired: Yes Ability to Follow Directions: Good Speech Pattern: Clear Hallucinations: None Delusions: Not Present Thought Process: Distracted and Slowed Thinking Thought Content: positive for [place] and positive for Circumstantial Judgement: Fair Diagnostics Vital Signs (24Hr): Vital Signs - 24 hr 06/20/24 20:12 06/20/24 23:54 06/21/24 00:12 Temperature 98.5 F 97.8 F 97.8 F Pulse Rate 69 59 59 Respiratory Rate 17 18 18 Blood Pressure 113/60 149/74 H 149/74 H Pulse Oximetry 91 L 97 97 Oxygen Delivery Method Room Air Room Air 06/21/24 07:20 Temperature 97.7 F Pulse Rate 71 Respiratory Rate 14 Blood Pressure 90/57 L Pulse Oximetry 97 Oxygen Delivery Method Room Air BMI result Body Mass Index 28.3 Labs 06/17/24 11:32 06/18/24 08:13 Medications Medications Current Medications Acetaminophen (Acetaminophen 325 Mg Tablet) 650 mg PO Q6H PRN PRN Reason: Headache/Pain Mild Scale (1-3) Last Admin: 06/19/24 12:41 Dose: 650 mg Al Hydroxide/Mg Hydroxide (Magnesium Hydrox/Alum Hydrox 30 Ml Oral.Susp) 30 ml PO Q6H PRN PRN Reason: Heartburn/Nausea Last Admin: 06/20/24 14:06 Dose: 30 ml Alprazolam (Alprazolam 0.5 Mg Tablet) 1 mg PO TID [facility] Last Admin: 06/20/24 20:14 Dose: 1 mg Baclofen (Baclofen 20 Mg Tablet) 20 mg PO BID [facility] Last Admin: 06/20/24 20:20 Dose: 20 mg Diclofenac Sodium (Diclofenac Sodium Delayed Rel 50 Mg Tablet.) 50 mg PO BID [facility] Last Admin: 06/20/24 20:18 Dose: 50 mg Duloxetine HCl (Duloxetine Hcl 60 Mg Capsule.) 60 mg PO DAILY [facility] Last Admin: 06/20/24 09:05 Dose: 60 mg Gabapentin (Gabapentin 600 Mg Tablet) 600 mg PO TID [facility] Last Admin: 06/20/24 20:19 Dose: 600 mg Hydroxyzine HCl (Hydroxyzine Hcl 25 Mg Tablet) 25 mg PO Q6H PRN PRN Reason: Anxiety Last Admin: 06/20/24 20:15 Dose: 25 mg Levothyroxine Sodium (Levothyroxine Sodium 125 Mcg Tablet) 125 mcg PO DAILY@0600 [facility] Last Admin: 06/21/24 05:59 Dose: 125 mcg Magnesium Hydroxide (Milk Of Magnesia 30 Ml Oral.Susp) 30 ml PO DAILY PRN PRN Reason: Constipation Melatonin (Melatonin 3 Mg Tablet) 3 mg PO BEDTIME PRN PRN Reason: Insomnia Last Admin: 06/21/24 01:42 Dose: 3 mg Nicotine (Nicotine 21 Mg Patch.Td24) 21 mg TRANSDERMA DAILY [facility] Last Admin: 06/20/24 09:03 Dose: Not Given Nicotine Polacrilex (Nicotine Polacrilex 2 Mg Gum) 4 mg BUCCAL Q2H PRN PRN Reason: Nicotine Cravings Last Admin: 06/20/24 09:08 Dose: 4 mg Nitrofurantoin Macrocrystals (Nitrofurantoin Monohyd/M-Cryst 100 Mg Capsule) 100 mg PO BID [facility] Stop: 06/24/24 21:00 Last Admin: 06/20/24 20:17 Dose: 100 mg Ondansetron HCl (Ondansetron Odt 8 Mg Tab.Rapdis) 8 mg TRANSLINGU Q12H PRN PRN Reason: Nausea and Vomiting Last Admin: 06/17/24 21:03 Dose: 8 mg Pantoprazole Sodium (Pantoprazole Sodium 20 Mg Tablet.) 40 mg PO DAILY@0630 [facility] Last Admin: 06/21/24 06:29 Dose: 40 mg Propranolol HCl (Propranolol Hcl La 60 Mg Cap.Sa.24h) 60 mg PO BEDTIME [facility]; Protocol Last Admin: 06/20/24 20:13 Dose: 60 mg Trazodone HCl (Trazodone Hcl 50 Mg Tablet) 50 mg PO BEDTIME MRX1 PRN PRN Reason: Insomnia Last Admin: 06/21/24 01:42 Dose: 50 mg Vitamin D (Cholecalciferol (Vitamin D3) 10 Mcg Tablet) 10 mcg PO DAILY [facility] Last Admin: 06/20/24 09:05 Dose: 10 mcg Zolpidem Tartrate (Zolpidem Tartrate 5 Mg Tablet) 10 mg PO BEDTIME PRN PRN Reason: Insomnia Last Admin: 06/20/24 20:13 Dose: 10 mg Allergies Allergies Allergy/AdvReac Type Severity Reaction Status Date / Time No Known Allergies Allergy Verified 06/15/24 23:58 Assessment & Plan Assessment & Plan (1) Major depressive disorder, recurrent severe without psychotic features: Status: Acute Code(s): F33.2 - Major depressive disorder, recurrent severe without psychotic features (2) Post traumatic stress disorder (PTSD): Status: Acute Code(s): F43.10 - Post-traumatic stress disorder, unspecified (3) Fibromyalgia: Status: Acute Code(s): M79.7 - Fibromyalgia (4) Homeless: Status: Acute Code(s): Z59.00 - Homelessness unspecified Plan PATIENT WITH WORSENING ISOLATION THOUGHTS OF SUICIDE MULTIPLE PSYCHOSOCIAL STRESSORS REPORTED RECENT BRIEF COCAINE RELAPSE CONTINUE AT PRESENT ALPRAZOLAM DULOXETINE PATIENT REQUIRES INPATIENT TREATMENT FOR SAFETY AND STABILIZATION. PATIENT TEARFUL DEPRESSED OVERWHELMED AGITATED UNCLEAR EXACTLY WHY SHE IS USING A WALKER HISTORY OF FIBROMYALGIA LONG HISTORY OF DEPRESSION PTSD AT CURRENT RISK OF SUICIDE NOT IN A LOCKED SETTING . RECENT HYPOKALEMIA UNCLEAR ETIOLOGY WILL FOLLOW. HAS BEEN TREATED BY PC P WILL TRY AND GET ADDITIONAL INFORMATION. PATIENT HOPING TO REFERRED BACK TO PANEL RAISER OPERATOR. RESTART MED EDUCATION CONSIDER AUGMENTATION STRATEGIES MOST LIKELY WOULD BENEFIT FROM DECREASE IN ALPRAZOLAM DENIES ABUSE OR TOLERANCE ALSO ON GABAPENTIN ADMIT CONDITIONAL VOLUNTARY 5 MINUTE CHECK PT CONSULT MEDICATIONS NOTED CONSIDER AUGMENTATION WITH ABILIFY/SEROQUEL MONITOR SAFETY 06/19: Active on unit, attending groups. ambulates with walker, 5 minute safety checks. Pt continues to report feeling anxious and depressed ; pt stated, I'm worried about where I'm going to go from here . Per nursing, pt slept 6 hours. denies SI/HI/VH/AH. 06/20: Pt continues to be anxious about where she will go after discharge. Patient stated, the social organization professor put in referrals for the [facility] and respite but if I don't get a bed then I'll go to the half-way . Per nursing, pt slept 8 hours. attending groups, social with peers. denies SI/HI/VH/AH. Continue current tx plan. 06/21. The patient was upset after realizing that her Xanax was lowered after being here for 3 days. Last night she slept and fall but she did not have major injuries. No changes in her mental status. Still worried about her disposition. Reason for continued inpatient stay Substantial Risk for: inability to function, rapid decompensation and med/psych decompensation Time Spent With Patient Time: Total time managing care of this patient today __20__ minutes.
[2024-06-21] MEDS: ALPRAZolam 0.5 MG TABLET 1 MG PO ×3 (09:18→20:33)
[2024-06-21] MEDS: Cholecalciferol (Vitamin D3) 10 MCG TABLET PO (09:19)
[2024-06-21] MEDS: DULoxetine HCl 60 MG CAPSULE.DR PO (09:20)
[2024-06-21] MEDS: Baclofen 20 MG TABLET PO ×2 (09:20→20:34)
[2024-06-21] MEDS: Diclofenac Sodium Delayed Rel 50 MG TABLET.DR PO ×2 (09:20→20:34)
[2024-06-21] MEDS: Nitrofurantoin Monohyd/M-Cryst 100 MG CAPSULE PO ×2 (09:20→20:34)
[2024-06-21] MEDS: Gabapentin 600 MG TABLET PO (09:21)
[2024-06-21] MEDS: Nicotine 21 MG PATCH.TD24 TRANSDERMA (09:22)
[2024-06-21] MEDS: Acetaminophen 325 MG TABLET 650 MG PO (11:54)
[2024-06-21] MEDS: Gabapentin 400 MG CAPSULE 800 MG PO ×2 (15:05→20:31)
[2024-06-21 20:18] VITALS: BP 119/58; PULSE 70; RESP 16; TEMP 36.6; O2SAT 93
[2024-06-21 20:26] VITALS: O2SAT 96
[2024-06-21] MEDS: Propranolol HCL LA 60 MG CAP.SA.24H PO (20:31)
[2024-06-21] MEDS: Zolpidem Tartrate 5 MG TABLET 10 MG PO (20:32)
[2024-06-21] MEDS: hydrOXYzine HCL 25 MG TABLET PO (20:32)
[2024-06-22] MEDS: Levothyroxine Sodium 125 MCG TABLET PO (06:06)
[2024-06-22] MEDS: Acetaminophen 325 MG TABLET 650 MG PO (06:15)
[2024-06-22] MEDS: Pantoprazole Sodium 20 MG TABLET.DR 40 MG PO (06:31)
[2024-06-22 07:20] VITALS: BP 138/69; PULSE 58; RESP 14; TEMP 36.7; O2SAT 99
--- NOTE | 2024-06-22 07:48 | P.PNPSI_ITS ---
Subjective Subjective Date of Service: 06/22/24 Reason For Visit: depression with si Subjective Notes: Conditional Voluntary Interim History: The nursing staff reported the patient had been medication compliant, she attended a few groups and she was easily engageable. Close to the team that she feels discharge patient. Continue antibiotic therapy for UTI. Yesterday I increased her gabapentin up to 100 mg p.o. t.i.d. to target her anxiety. No over-sedation. She slept 7 hours. On interview the patient reports minimal improvement of anxiety with the increase of gabapentin, she states that gabapentin helps her for chronic pain. She was very upset that her Xanax was word from 2 mg to 1 mg. I explained her that she should inform the primary team. Mental Status Exam Mental Status Exam Patient Appearance: Well Grooomed and Appropriate Patient Orientation: Person and Situation Level of Consciousness: Awake and Appropriate Patient Behavior: Guarded and Passive Mood Description: Withdrawn Affect Description: Constricted Patient Cognition Impaired: Yes Ability to Follow Directions: Good Speech Pattern: Clear Hallucinations: None Delusions: Ideas of Reference Thought Process: Goal Oriented and Linear Thought Content: positive for Circumstantial Judgement: Fair Diagnostics Vital Signs (24Hr): Vital Signs - 24 hr 06/21/24 20:18 06/21/24 20:26 Temperature 97.8 F Pulse Rate 70 Respiratory Rate 16 Blood Pressure 119/58 L Pulse Oximetry 93 96 Oxygen Delivery Method Room Air Room Air BMI result Body Mass Index 28.3 Labs 06/17/24 11:32 06/18/24 08:13 Medications Medications Current Medications Acetaminophen (Acetaminophen 325 Mg Tablet) 650 mg PO Q6H PRN PRN Reason: Headache/Pain Mild Scale (1-3) Last Admin: 06/22/24 06:15 Dose: 650 mg Al Hydroxide/Mg Hydroxide (Magnesium Hydrox/Alum Hydrox 30 Ml Oral.Susp) 30 ml PO Q6H PRN PRN Reason: Heartburn/Nausea Last Admin: 06/20/24 14:06 Dose: 30 ml Alprazolam (Alprazolam 0.5 Mg Tablet) 1 mg PO TID [facility] Last Admin: 06/21/24 20:33 Dose: 1 mg Baclofen (Baclofen 20 Mg Tablet) 20 mg PO BID [facility] Last Admin: 06/21/24 20:34 Dose: 20 mg Diclofenac Sodium (Diclofenac Sodium Delayed Rel 50 Mg Tablet.Dr) 50 mg PO BID [facility] Last Admin: 06/21/24 20:34 Dose: 50 mg Duloxetine HCl (Duloxetine Hcl 60 Mg Capsule.) 60 mg PO DAILY [facility] Last Admin: 06/21/24 09:20 Dose: 60 mg Gabapentin (Gabapentin 400 Mg Capsule) 800 mg PO TID [facility] Last Admin: 06/21/24 20:31 Dose: 800 mg Hydroxyzine HCl (Hydroxyzine Hcl 25 Mg Tablet) 25 mg PO Q6H PRN PRN Reason: Anxiety Last Admin: 06/21/24 20:32 Dose: 25 mg Levothyroxine Sodium (Levothyroxine Sodium 125 Mcg Tablet) 125 mcg PO DAILY@0600 [facility] Last Admin: 06/22/24 06:06 Dose: 125 mcg Magnesium Hydroxide (Milk Of Magnesia 30 Ml Oral.Susp) 30 ml PO DAILY PRN PRN Reason: Constipation Melatonin (Melatonin 3 Mg Tablet) 3 mg PO BEDTIME PRN PRN Reason: Insomnia Last Admin: 06/21/24 20:32 Dose: 3 mg Nicotine (Nicotine 21 Mg Patch.Td24) 21 mg TRANSDERMA DAILY [facility] Last Admin: 06/21/24 09:22 Dose: 21 mg Nicotine Polacrilex (Nicotine Polacrilex 2 Mg Gum) 4 mg BUCCAL Q2H PRN PRN Reason: Nicotine Cravings Last Admin: 06/20/24 09:08 Dose: 4 mg Nitrofurantoin Macrocrystals (Nitrofurantoin Monohyd/M-Cryst 100 Mg Capsule) 100 mg PO BID [facility] Stop: 06/24/24 21:00 Last Admin: 06/21/24 20:34 Dose: 100 mg Ondansetron HCl (Ondansetron Odt 8 Mg Tab.Rapdis) 8 mg TRANSLINGU Q12H PRN PRN Reason: Nausea and Vomiting Last Admin: 06/17/24 21:03 Dose: 8 mg Pantoprazole Sodium (Pantoprazole Sodium 20 Mg Tablet.) 40 mg PO DAILY@0630 [facility] Last Admin: 06/22/24 06:31 Dose: 40 mg Propranolol HCl (Propranolol Hcl La 60 Mg Cap.Sa.24h) 60 mg PO BEDTIME [facility]; Protocol Last Admin: 06/21/24 20:31 Dose: 60 mg Trazodone HCl (Trazodone Hcl 50 Mg Tablet) 50 mg PO BEDTIME MRX1 PRN PRN Reason: Insomnia Last Admin: 06/21/24 20:32 Dose: 50 mg Vitamin D (Cholecalciferol (Vitamin D3) 10 Mcg Tablet) 10 mcg PO DAILY [facility] Last Admin: 06/21/24 09:19 Dose: 10 mcg Zolpidem Tartrate (Zolpidem Tartrate 5 Mg Tablet) 10 mg PO BEDTIME PRN PRN Reason: Insomnia Last Admin: 06/21/24 20:32 Dose: 10 mg Allergies Allergies Allergy/AdvReac Type Severity Reaction Status Date / Time No Known Allergies Allergy Verified 06/15/24 23:58 Assessment & Plan Assessment & Plan (1) Major depressive disorder, recurrent severe without psychotic features: Status: Acute Code(s): F33.2 - Major depressive disorder, recurrent severe without psychotic features (2) Post traumatic stress disorder (PTSD): Status: Acute Code(s): F43.10 - Post-traumatic stress disorder, unspecified (3) Fibromyalgia: Status: Acute Code(s): M79.7 - Fibromyalgia (4) Homeless: Status: Acute Code(s): Z59.00 - Homelessness unspecified Plan PATIENT WITH WORSENING ISOLATION THOUGHTS OF SUICIDE MULTIPLE PSYCHOSOCIAL STRESSORS REPORTED RECENT BRIEF COCAINE RELAPSE CONTINUE AT PRESENT ALPRAZOLAM DULOXETINE PATIENT REQUIRES INPATIENT TREATMENT FOR SAFETY AND STABILIZATION. PATIENT TEARFUL DEPRESSED OVERWHELMED AGITATED UNCLEAR EXACTLY WHY SHE IS USING A WALKER HISTORY OF FIBROMYALGIA LONG HISTORY OF DEPRESSION PTSD AT CURRENT RISK OF SUICIDE NOT IN A LOCKED SETTING . RECENT HYPOKALEMIA UNCLEAR ETIOLOGY WILL FOLLOW. HAS BEEN TREATED BY PC P WILL TRY AND GET ADDITIONAL INFORMATION. PATIENT HOPING TO REFERRED BACK TO [employer]. RESTART MED EDUCATION CONSIDER AUGMENTATION STRATEGIES MOST LIKELY WOULD BENEFIT FROM DECREASE IN ALPRAZOLAM DENIES ABUSE OR TOLERANCE ALSO ON GABAPENTIN ADMIT CONDITIONAL VOLUNTARY 5 MINUTE CHECK PT CONSULT MEDICATIONS NOTED CONSIDER AUGMENTATION WITH ABILIFY/SEROQUEL MONITOR SAFETY 06/19: Active on unit, attending groups. ambulates with walker, 5 minute safety checks. Pt continues to report feeling anxious and depressed ; pt stated, I'm worried about where I'm going to go from here . Per nursing, pt slept 6 hours. denies SI/HI/VH/AH. 06/20: Pt continues to be anxious about where she will go after discharge. Patient stated, the social worker delinquency prevention put in referrals for the [facility] and respite but if I don't get a bed then I'll go to the skilled nursing . Per nursing, pt slept 8 hours. attending groups, social with peers. denies SI/HI/VH/AH. Continue current tx plan. 06/21. The patient was upset after realizing that her Xanax was lowered after being here for 3 days. Last night she slept and fall but she did not have major injuries. No changes in her mental status. Still worried about her disposition. 06/22 we increase gabapentin up to 800 mg p.o. t.i.d. with no evidence of over- sedation and reports minimal improvement of anxiety. We will keep on the same treatment for today. Reason for continued inpatient stay Substantial Risk for: inability to function, rapid decompensation and med/psych decompensation Time Spent With Patient Time: Total time managing care of this patient today __20__ minutes.
[2024-06-22] MEDS: DULoxetine HCl 60 MG CAPSULE.DR PO (08:27)
[2024-06-22] MEDS: Baclofen 20 MG TABLET PO ×2 (08:27→20:32)
[2024-06-22] MEDS: Gabapentin 400 MG CAPSULE 800 MG PO ×3 (08:27→20:31)
[2024-06-22] MEDS: ALPRAZolam 0.5 MG TABLET 1 MG PO ×3 (08:27→20:31)
[2024-06-22] MEDS: Diclofenac Sodium Delayed Rel 50 MG TABLET.DR PO ×2 (08:28→20:32)
[2024-06-22] MEDS: Cholecalciferol (Vitamin D3) 10 MCG TABLET PO (08:28)
[2024-06-22] MEDS: Nitrofurantoin Monohyd/M-Cryst 100 MG CAPSULE PO ×2 (08:28→20:35)
[2024-06-22] MEDS: Nicotine 21 MG PATCH.TD24 TRANSDERMA (08:32)
[2024-06-22 19:05] VITALS: BP 154/72; PULSE 75; RESP 18; TEMP 37; O2SAT 92
[2024-06-22] MEDS: Propranolol HCL LA 60 MG CAP.SA.24H PO (20:31)
[2024-06-23] MEDS: Pantoprazole Sodium 20 MG TABLET.DR 40 MG PO (06:28)
[2024-06-23] MEDS: Levothyroxine Sodium 125 MCG TABLET PO (06:28)
[2024-06-23 08:00] VITALS: BP 145/69; PULSE 58; RESP 16; TEMP 36.6; O2SAT 98
[2024-06-23] MEDS: Nicotine 21 MG PATCH.TD24 TRANSDERMA (08:17)
[2024-06-23] MEDS: Nitrofurantoin Monohyd/M-Cryst 100 MG CAPSULE PO ×2 (08:18→20:30)
[2024-06-23] MEDS: Gabapentin 400 MG CAPSULE 800 MG PO ×3 (08:18→20:28)
[2024-06-23] MEDS: Cholecalciferol (Vitamin D3) 10 MCG TABLET PO (08:18)
[2024-06-23] MEDS: ALPRAZolam 0.5 MG TABLET 1 MG PO ×3 (08:18→20:29)
[2024-06-23] MEDS: Baclofen 20 MG TABLET PO ×2 (08:19→20:29)
[2024-06-23] MEDS: DULoxetine HCl 60 MG CAPSULE.DR PO (08:19)
[2024-06-23] MEDS: Diclofenac Sodium Delayed Rel 50 MG TABLET.DR PO ×2 (08:23→20:29)
--- NOTE | 2024-06-23 09:32 | P.PNPSI_ITS ---
Subjective Subjective Date of Service: 06/23/24 Reason For Visit: depression with si Subjective Notes: Conditional Voluntary Interim History: Active on unit, social with peers. attending groups. Concerned about where she will go after discharge. 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 Patient reports increased anxiety; pt stated, I'm just worried about the next step . denies SI/HI/VH/AH. per nursing, pt slept 8 hours last night. Medication Compliance: Yes Side effects from medications: No Attending Groups: Yes Review of Systems Constitutional: Reports as per HPI Eyes: Reports as per HPI Reports as per HPI Cardiovascular: Reports as per HPI Respiratory: Reports as per HPI Gastrointestinal: Reports as per HPI Musculoskeletal: Reports as per HPI Skin/Breast: Reports as per HPI Reports as per HPI Psychiatric: Reports as per HPI Endocrine: Reports as per HPI Hematologic/Lymphatic: Reports as per HPI Allergic/Immunologic: Reports as per HPI Mental Status Exam Mental Status Exam Narrative: Pt is alert and oriented; behavior is cooperative; dressed in casual attire; mood is described as anxious ; eye contact appropriate; Speech is normal rate, volume and not pressured; thought process is organized and goal directed; Thought content is on tx; otherwise pertinent to relevant topics and without any delusional content, paranoid ideations or grandiosity; denies SI/HI/VH/AH. Diagnostics Vital Signs (24Hr): Vital Signs - 24 hr 06/22/24 19:05 06/23/24 08:00 Temperature 98.6 F 97.9 F Pulse Rate 75 58 Respiratory Rate 18 16 Blood Pressure 154/72 H 145/69 H Pulse Oximetry 92 98 Oxygen Delivery Method Room Air Room Air BMI result Body Mass Index 28.3 Labs 06/17/24 11:32 06/18/24 08:13 Medications Medications Current Medications Acetaminophen (Acetaminophen 325 Mg Tablet) 650 mg PO Q6H PRN PRN Reason: Headache/Pain Mild Scale (1-3) Last Admin: 06/22/24 06:15 Dose: 650 mg Al Hydroxide/Mg Hydroxide (Magnesium Hydrox/Alum Hydrox 30 Ml Oral.Susp) 30 ml PO Q6H PRN PRN Reason: Heartburn/Nausea Last Admin: 06/20/24 14:06 Dose: 30 ml Alprazolam (Alprazolam 0.5 Mg Tablet) 1 mg PO TID [facility] Last Admin: 06/23/24 08:18 Dose: 1 mg Baclofen (Baclofen 20 Mg Tablet) 20 mg PO BID [facility] Last Admin: 06/23/24 08:19 Dose: 20 mg Diclofenac Sodium (Diclofenac Sodium Delayed Rel 50 Mg Tablet.) 50 mg PO BID [facility] Last Admin: 06/23/24 08:23 Dose: 50 mg Duloxetine HCl (Duloxetine Hcl 60 Mg Capsule.) 60 mg PO DAILY [facility] Last Admin: 06/23/24 08:19 Dose: 60 mg Gabapentin (Gabapentin 400 Mg Capsule) 800 mg PO TID [facility] Last Admin: 06/23/24 08:18 Dose: 800 mg Hydroxyzine HCl (Hydroxyzine Hcl 25 Mg Tablet) 25 mg PO Q6H PRN PRN Reason: Anxiety Last Admin: 06/21/24 20:32 Dose: 25 mg Levothyroxine Sodium (Levothyroxine Sodium 125 Mcg Tablet) 125 mcg PO DAILY@0600 [facility] Last Admin: 06/23/24 06:28 Dose: 125 mcg Magnesium Hydroxide (Milk Of Magnesia 30 Ml Oral.Susp) 30 ml PO DAILY PRN PRN Reason: Constipation Melatonin (Melatonin 3 Mg Tablet) 3 mg PO BEDTIME PRN PRN Reason: Insomnia Last Admin: 06/21/24 20:32 Dose: 3 mg Nicotine (Nicotine 21 Mg Patch.Td24) 21 mg TRANSDERMA DAILY [facility] Last Admin: 06/23/24 08:17 Dose: 21 mg Nicotine Polacrilex (Nicotine Polacrilex 2 Mg Gum) 4 mg BUCCAL Q2H PRN PRN Reason: Nicotine Cravings Last Admin: 06/20/24 09:08 Dose: 4 mg Nitrofurantoin Macrocrystals (Nitrofurantoin Monohyd/M-Cryst 100 Mg Capsule) 100 mg PO BID [facility] Stop: 06/24/24 21:00 Last Admin: 06/23/24 08:18 Dose: 100 mg Ondansetron HCl (Ondansetron Odt 8 Mg Tab.Rapdis) 8 mg TRANSLINGU Q12H PRN PRN Reason: Nausea and Vomiting Last Admin: 06/17/24 21:03 Dose: 8 mg Pantoprazole Sodium (Pantoprazole Sodium 20 Mg Tablet.) 40 mg PO DAILY@0630 [facility] Last Admin: 06/23/24 06:28 Dose: 40 mg Propranolol HCl (Propranolol Hcl La 60 Mg Cap.Sa.24h) 60 mg PO BEDTIME [facility]; Protocol Last Admin: 06/22/24 20:31 Dose: 60 mg Trazodone HCl (Trazodone Hcl 50 Mg Tablet) 50 mg PO BEDTIME MRX1 PRN PRN Reason: Insomnia Last Admin: 06/21/24 20:32 Dose: 50 mg Vitamin D (Cholecalciferol (Vitamin D3) 10 Mcg Tablet) 10 mcg PO DAILY [facility] Last Admin: 06/23/24 08:18 Dose: 10 mcg Zolpidem Tartrate (Zolpidem Tartrate 5 Mg Tablet) 10 mg PO BEDTIME PRN PRN Reason: Insomnia Last Admin: 06/21/24 20:32 Dose: 10 mg Allergies Allergies Allergy/AdvReac Type Severity Reaction Status Date / Time No Known Allergies Allergy Verified 06/15/24 23:58 Assessment & Plan Assessment & Plan (1) Major depressive disorder, recurrent severe without psychotic features: Status: Acute Code(s): F33.2 - Major depressive disorder, recurrent severe without psychotic features (2) Post traumatic stress disorder (PTSD): Status: Acute Code(s): F43.10 - Post-traumatic stress disorder, unspecified (3) Fibromyalgia: Status: Acute Code(s): M79.7 - Fibromyalgia (4) Homeless: Status: Acute Code(s): Z59.00 - Homelessness unspecified Plan PATIENT WITH WORSENING ISOLATION THOUGHTS OF SUICIDE MULTIPLE PSYCHOSOCIAL STRESSORS REPORTED RECENT BRIEF COCAINE RELAPSE CONTINUE AT PRESENT ALPRAZOLAM DULOXETINE PATIENT REQUIRES INPATIENT TREATMENT FOR SAFETY AND STABILIZATION. PATIENT TEARFUL DEPRESSED OVERWHELMED AGITATED UNCLEAR EXACTLY WHY SHE IS USING A WALKER HISTORY OF FIBROMYALGIA LONG HISTORY OF DEPRESSION PTSD AT CURRENT RISK OF SUICIDE NOT IN A LOCKED SETTING . RECENT HYPOKALEMIA UNCLEAR ETIOLOGY WILL FOLLOW. HAS BEEN TREATED BY PC P WILL TRY AND GET ADDITIONAL INFORMATION. 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 RESTART MED EDUCATION CONSIDER AUGMENTATION STRATEGIES MOST LIKELY WOULD BENEFIT FROM DECREASE IN ALPRAZOLAM DENIES ABUSE OR TOLERANCE ALSO ON GABAPENTIN ADMIT CONDITIONAL VOLUNTARY 5 MINUTE CHECK PT CONSULT MEDICATIONS NOTED CONSIDER AUGMENTATION WITH ABILIFY/SEROQUEL MONITOR SAFETY 06/19: Active on unit, attending groups. ambulates with walker, 5 minute safety checks. Pt continues to report feeling anxious and depressed ; pt stated, I'm worried about where I'm going to go from here . Per nursing, pt slept 6 hours. denies SI/HI/VH/AH. 06/20: Pt continues to be anxious about where she will go after discharge. Patient stated, the psychologist social put in referrals for the [facility] and respite but if I don't get a bed then [facility] . Per nursing, pt slept 8 hours. attending groups, social with peers. denies SI/HI/VH/AH. Continue current tx plan. 06/21. The patient was upset after realizing that her Xanax was lowered after being here for 3 days. Last night she slept and fall but she did not have major injuries. No changes in her mental status. Still worried about her disposition. 06/22 we increase gabapentin up to 800 mg p.o. t.i.d. with no evidence of over- sedation and reports minimal improvement of anxiety. We will keep on the same treatment for today. 06/23: Active on unit, social with peers. attending groups. Concerned about where she will go after discharge. 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 Patient reports increased anxiety; pt stated, I'm just worried about the next step . denies SI/HI/VH/AH. per nursing, pt slept 8 hours last night. Continue current tx plan. Patient educated on: diagnosis, medication risk/benefits and therapeutic strategies Reason for continued inpatient stay Substantial Risk for: med/psych decompensation Time Spent With Patient Time: Total time managing care of this patient today _20___ minutes.
[2024-06-23 20:19] VITALS: BP 164/78; PULSE 69; RESP 18; TEMP 36.6; O2SAT 98
[2024-06-23] MEDS: Lidocaine 4 % Patch ADH..PATCH 2 PATCH TRANSDERMA (20:27)
[2024-06-23] MEDS: Propranolol HCL LA 60 MG CAP.SA.24H PO (20:28)
[2024-06-23] MEDS: hydrOXYzine HCL 25 MG TABLET PO (20:28)
[2024-06-23] MEDS: Zolpidem Tartrate 5 MG TABLET 10 MG PO (20:30)
[2024-06-23] MEDS: traZODone HCL 50 MG TABLET PO (20:31)
[2024-06-23] MEDS: Melatonin 3 MG TABLET PO (20:31)
[2024-06-24] MEDS: Levothyroxine Sodium 125 MCG TABLET PO (06:28)
[2024-06-24] MEDS: Acetaminophen 325 MG TABLET 650 MG PO (06:48)
[2024-06-24] MEDS: Pantoprazole Sodium 20 MG TABLET.DR 40 MG PO (06:48)
[2024-06-24 07:35] VITALS: BP 138/63; PULSE 60; RESP 16; TEMP 36.8; O2SAT 97
[2024-06-24] MEDS: Nitrofurantoin Monohyd/M-Cryst 100 MG CAPSULE PO ×2 (08:33→20:54)
[2024-06-24] MEDS: Nicotine 21 MG PATCH.TD24 TRANSDERMA (08:33)
[2024-06-24] MEDS: ALPRAZolam 0.5 MG TABLET 1 MG PO ×3 (08:33→20:52)
[2024-06-24] MEDS: Baclofen 20 MG TABLET PO ×2 (08:34→20:52)
[2024-06-24] MEDS: Gabapentin 400 MG CAPSULE 800 MG PO ×3 (08:34→20:54)
[2024-06-24] MEDS: Diclofenac Sodium Delayed Rel 50 MG TABLET.DR PO ×2 (08:34→20:53)
[2024-06-24] MEDS: Cholecalciferol (Vitamin D3) 10 MCG TABLET PO (08:34)
[2024-06-24] MEDS: DULoxetine HCl 60 MG CAPSULE.DR PO (08:35)
--- NOTE | 2024-06-24 09:47 | HO.PSYCHPN ---
Subjective Subjective Date of Service: 06/24/24 Reason For Visit: depression with si Subjective Notes: Conditional Voluntary Interim History: Patient continues focused on disposition after discharge. Pt stated, I feel like I'm getting more anxiety everyday because I'm focused on this. When I'm not occupied with groups or talking to people, I get anxious . denies SI/HI/VH/AH. Social work referred pt to [facility]; waiting to hear back. Medication Compliance: Yes Side effects from medications: No Attending Groups: Yes Review of Systems Constitutional: Reports as per HPI Eyes: Reports as per HPI Reports as per HPI Cardiovascular: Reports as per HPI Respiratory: Reports as per HPI Gastrointestinal: Reports as per HPI Musculoskeletal: Reports as per HPI Skin/Breast: Reports as per HPI Reports as per HPI Psychiatric: Reports as per HPI Endocrine: Reports as per HPI Hematologic/Lymphatic: Reports as per HPI Allergic/Immunologic: Reports as per HPI Mental Status Exam Mental Status Exam Narrative: Pt is alert and oriented; behavior is cooperative; dressed in casual attire; mood is described as anxious ; eye contact appropriate; Speech is normal rate, volume and not pressured; thought process is organized and goal directed; Thought content is on tx; otherwise pertinent to relevant topics and without any delusional content, paranoid ideations or grandiosity; denies SI/HI/VH/AH. Diagnostics Vital Signs (24Hr): Vital Signs - 24 hr 06/23/24 20:19 06/24/24 07:35 Temperature 97.8 F 98.3 F Pulse Rate 69 60 Respiratory Rate 18 16 Blood Pressure 164/78 H 138/63 Pulse Oximetry 98 97 Oxygen Delivery Method Room Air Room Air BMI result Body Mass Index 28.3 Labs 06/17/24 11:32 06/18/24 08:13 Medications Medications Current Medications Acetaminophen (Acetaminophen 325 Mg Tablet) 650 mg PO Q6H PRN PRN Reason: Headache/Pain Mild Scale (1-3) Last Admin: 06/24/24 06:48 Dose: 650 mg Al Hydroxide/Mg Hydroxide (Magnesium Hydrox/Alum Hydrox 30 Ml Oral.Susp) 30 ml PO Q6H PRN PRN Reason: Heartburn/Nausea Last Admin: 06/20/24 14:06 Dose: 30 ml Alprazolam (Alprazolam 0.5 Mg Tablet) 1 mg PO TID [facility] Last Admin: 06/24/24 08:33 Dose: 1 mg Baclofen (Baclofen 20 Mg Tablet) 20 mg PO BID [facility] Last Admin: 06/24/24 08:34 Dose: 20 mg Diclofenac Sodium (Diclofenac Sodium Delayed Rel 50 Mg Tablet.) 50 mg PO BID [facility] Last Admin: 06/24/24 08:34 Dose: 50 mg Duloxetine HCl (Duloxetine Hcl 60 Mg Capsule.) 60 mg PO DAILY [facility] Last Admin: 06/24/24 08:35 Dose: 60 mg Gabapentin (Gabapentin 400 Mg Capsule) 800 mg PO TID [facility] Last Admin: 06/24/24 08:34 Dose: 800 mg Hydroxyzine HCl (Hydroxyzine Hcl 25 Mg Tablet) 25 mg PO Q6H PRN PRN Reason: Anxiety Last Admin: 06/23/24 20:28 Dose: 25 mg Levothyroxine Sodium (Levothyroxine Sodium 125 Mcg Tablet) 125 mcg PO DAILY@0600 [facility] Last Admin: 06/24/24 06:28 Dose: 125 mcg Lidocaine (Lidocaine 4 % Patch Adh..Patch) 2 patch TRANSDERMA DAILY [facility]; Protocol Last Admin: 06/23/24 20:27 Dose: 2 patch Magnesium Hydroxide (Milk Of Magnesia 30 Ml Oral.Susp) 30 ml PO DAILY PRN PRN Reason: Constipation Melatonin (Melatonin 3 Mg Tablet) 3 mg PO BEDTIME PRN PRN Reason: Insomnia Last Admin: 06/23/24 20:31 Dose: 3 mg Nicotine (Nicotine 21 Mg Patch.Td24) 21 mg TRANSDERMA DAILY [facility] Last Admin: 06/24/24 08:33 Dose: 21 mg Nicotine Polacrilex (Nicotine Polacrilex 2 Mg Gum) 4 mg BUCCAL Q2H PRN PRN Reason: Nicotine Cravings Last Admin: 06/20/24 09:08 Dose: 4 mg Nitrofurantoin Macrocrystals (Nitrofurantoin Monohyd/M-Cryst 100 Mg Capsule) 100 mg PO BID [facility] Stop: 06/24/24 21:00 Last Admin: 06/24/24 08:33 Dose: 100 mg Ondansetron HCl (Ondansetron Odt 8 Mg Tab.Rapdis) 8 mg TRANSLINGU Q12H PRN PRN Reason: Nausea and Vomiting Last Admin: 06/17/24 21:03 Dose: 8 mg Pantoprazole Sodium (Pantoprazole Sodium 20 Mg Tablet.) 40 mg PO DAILY@0630 [facility] Last Admin: 06/24/24 06:48 Dose: 40 mg Propranolol HCl (Propranolol Hcl La 60 Mg Cap.Sa.24h) 60 mg PO BEDTIME [facility]; Protocol Last Admin: 06/23/24 20:28 Dose: 60 mg Trazodone HCl (Trazodone Hcl 50 Mg Tablet) 50 mg PO BEDTIME MRX1 PRN PRN Reason: Insomnia Last Admin: 06/23/24 20:31 Dose: 50 mg Vitamin D (Cholecalciferol (Vitamin D3) 10 Mcg Tablet) 10 mcg PO DAILY [facility] Last Admin: 06/24/24 08:34 Dose: 10 mcg Zolpidem Tartrate (Zolpidem Tartrate 5 Mg Tablet) 10 mg PO BEDTIME PRN PRN Reason: Insomnia Last Admin: 06/23/24 20:30 Dose: 10 mg Allergies Allergies Allergy/AdvReac Type Severity Reaction Status Date / Time No Known Allergies Allergy Verified 06/15/24 23:58 Assessment & Plan Assessment & Plan (1) Major depressive disorder, recurrent severe without psychotic features: Status: Acute Code(s): F33.2 - Major depressive disorder, recurrent severe without psychotic features (2) Post traumatic stress disorder (PTSD): Status: Acute Code(s): F43.10 - Post-traumatic stress disorder, unspecified (3) Fibromyalgia: Status: Acute Code(s): M79.7 - Fibromyalgia (4) Homeless: Status: Acute Code(s): Z59.00 - Homelessness unspecified Plan PATIENT WITH WORSENING ISOLATION THOUGHTS OF SUICIDE MULTIPLE PSYCHOSOCIAL STRESSORS REPORTED RECENT BRIEF COCAINE RELAPSE CONTINUE AT PRESENT ALPRAZOLAM DULOXETINE PATIENT REQUIRES INPATIENT TREATMENT FOR SAFETY AND STABILIZATION. PATIENT TEARFUL DEPRESSED OVERWHELMED AGITATED UNCLEAR EXACTLY WHY SHE IS USING A WALKER HISTORY OF FIBROMYALGIA LONG HISTORY OF DEPRESSION PTSD AT CURRENT RISK OF SUICIDE NOT IN A LOCKED SETTING . RECENT HYPOKALEMIA UNCLEAR ETIOLOGY WILL FOLLOW. HAS BEEN TREATED BY PC P WILL TRY AND GET ADDITIONAL INFORMATION. 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 RESTART MED EDUCATION CONSIDER AUGMENTATION STRATEGIES MOST LIKELY WOULD BENEFIT FROM DECREASE IN ALPRAZOLAM DENIES ABUSE OR TOLERANCE ALSO ON GABAPENTIN ADMIT CONDITIONAL VOLUNTARY 5 MINUTE CHECK PT CONSULT MEDICATIONS NOTED CONSIDER AUGMENTATION WITH ABILIFY/SEROQUEL MONITOR SAFETY 06/19: Active on unit, attending groups. ambulates with walker, 5 minute safety checks. Pt continues to report feeling anxious and depressed ; pt stated, I'm worried about where I'm going to go from here . Per nursing, pt slept 6 hours. denies SI/HI/VH/AH. 06/20: Pt continues to be anxious about where she will go after discharge. Patient stated, the social work case manager put in referrals for the [facility] and respite but if I don't get a bed then I'll go to the custodial . Per nursing, pt slept 8 hours. attending groups, social with peers. denies SI/HI/VH/AH. Continue current tx plan. 06/21. The patient was upset after realizing that her Xanax was lowered after being here for 3 days. Last night she slept and fall but she did not have major injuries. No changes in her mental status. Still worried about her disposition. 06/22 we increase gabapentin up to 800 mg p.o. t.i.d. with no evidence of over-sedation and reports minimal improvement of anxiety. We will keep on the same treatment for today. 06/23: Active on unit, social with peers. attending groups. Concerned about where she will go after discharge. 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 Patient reports increased anxiety; pt stated, I'm just worried about the next step . denies SI/HI/VH/AH. per nursing, pt slept 8 hours last night. Continue current tx plan. 06/24: Patient continues focused on disposition after discharge. Pt stated, I feel like I'm getting more anxiety everyday because I'm focused on this. When I'm not occupied with groups or talking to people, I get anxious . denies SI/HI/VH/AH. Social work referred pt to [facility]; waiting to hear back. Patient educated on: diagnosis, medication risk/benefits and therapeutic strategies Reason for continued inpatient stay Substantial Risk for: med/psych decompensation Time Spent With Patient Time: Total time managing care of this patient today _20___ minutes.
[2024-06-24] MEDS: Lidocaine 4 % Patch ADH..PATCH 2 PATCH TRANSDERMA (14:07)
[2024-06-24 20:43] VITALS: BP 177/78; PULSE 69; RESP 16; TEMP 36.9; O2SAT 98
[2024-06-24] MEDS: Propranolol HCL LA 60 MG CAP.SA.24H PO (20:52)
[2024-06-24] MEDS: Zolpidem Tartrate 5 MG TABLET 10 MG PO (20:52)
[2024-06-24] MEDS: traZODone HCL 50 MG TABLET PO (20:53)
[2024-06-24] MEDS: hydrOXYzine HCL 25 MG TABLET PO (20:53)
[2024-06-24] MEDS: Melatonin 3 MG TABLET PO (20:53)
[2024-06-25] MEDS: Levothyroxine Sodium 125 MCG TABLET PO (06:08)
[2024-06-25] MEDS: Acetaminophen 325 MG TABLET 650 MG PO (06:26)
[2024-06-25] MEDS: Pantoprazole Sodium 20 MG TABLET.DR 40 MG PO (06:26)
[2024-06-25 07:47] VITALS: BP 134/69; PULSE 54; RESP 16; TEMP 36.4; O2SAT 97
--- NOTE | 2024-06-25 08:51 | HO.PSYCHPN ---
Subjective Subjective Date of Service: 06/25/24 Reason For Visit: depression with si Subjective Notes: Conditional Voluntary Interim History: Active on unit, social with peers. attending groups. Pt reports she has been calling various shelters today to see if they have an open bed available for her. Continues anxious d/t where she will go after discharge;hopeful she will get a bed. she reports sleeping well. Medication Compliance: Yes Side effects from medications: No Attending Groups: Yes Review of Systems Constitutional: Reports as per HPI Eyes: Reports as per HPI Reports as per HPI Cardiovascular: Reports as per HPI Respiratory: Reports as per HPI Gastrointestinal: Reports as per HPI Musculoskeletal: Reports as per HPI Skin/Breast: Reports as per HPI Reports as per HPI Psychiatric: Reports as per HPI Endocrine: Reports as per HPI Hematologic/Lymphatic: Reports as per HPI Allergic/Immunologic: Reports as per HPI Mental Status Exam Mental Status Exam Narrative: Pt is alert and oriented; behavior is cooperative; dressed in casual attire; mood is described as anxious ; eye contact appropriate; Speech is normal rate, volume and not pressured; thought process is organized and goal directed; Thought content is on tx; otherwise pertinent to relevant topics and without any delusional content, paranoid ideations or grandiosity; denies SI/HI/VH/AH. Diagnostics Vital Signs (24Hr): Vital Signs - 24 hr 06/24/24 20:43 06/25/24 07:47 Temperature 98.5 F 97.6 F Pulse Rate 69 54 Respiratory Rate 16 16 Blood Pressure 177/78 H 134/69 Pulse Oximetry 98 97 Oxygen Delivery Method Room Air Room Air BMI result Body Mass Index 28.3 Labs 06/17/24 11:32 06/18/24 08:13 Medications Medications Current Medications Acetaminophen (Acetaminophen 325 Mg Tablet) 650 mg PO Q6H PRN PRN Reason: Headache/Pain Mild Scale (1-3) Last Admin: 06/25/24 06:26 Dose: 650 mg Al Hydroxide/Mg Hydroxide (Magnesium Hydrox/Alum Hydrox 30 Ml Oral.Susp) 30 ml PO Q6H PRN PRN Reason: Heartburn/Nausea Last Admin: 06/20/24 14:06 Dose: 30 ml Alprazolam (Alprazolam 0.5 Mg Tablet) 1 mg PO TID [facility] Last Admin: 06/24/24 20:52 Dose: 1 mg Baclofen (Baclofen 20 Mg Tablet) 20 mg PO BID [facility] Last Admin: 06/24/24 20:52 Dose: 20 mg Diclofenac Sodium (Diclofenac Sodium Delayed Rel 50 Mg Tablet.) 50 mg PO BID [facility] Last Admin: 06/24/24 20:53 Dose: 50 mg Duloxetine HCl (Duloxetine Hcl 60 Mg Capsule.) 60 mg PO DAILY [facility] Last Admin: 06/24/24 08:35 Dose: 60 mg Gabapentin (Gabapentin 400 Mg Capsule) 800 mg PO TID [facility] Last Admin: 06/24/24 20:54 Dose: 800 mg Hydroxyzine HCl (Hydroxyzine Hcl 25 Mg Tablet) 25 mg PO Q6H PRN PRN Reason: Anxiety Last Admin: 06/24/24 20:53 Dose: 25 mg Levothyroxine Sodium (Levothyroxine Sodium 125 Mcg Tablet) 125 mcg PO DAILY@0600 [facility] Last Admin: 06/25/24 06:08 Dose: 125 mcg Lidocaine (Lidocaine 4 % Patch Adh..Patch) 2 patch TRANSDERMA DAILY [facility]; Protocol Last Admin: 06/24/24 14:07 Dose: 2 patch Magnesium Hydroxide (Milk Of Magnesia 30 Ml Oral.Susp) 30 ml PO DAILY PRN PRN Reason: Constipation Melatonin (Melatonin 3 Mg Tablet) 3 mg PO BEDTIME PRN PRN Reason: Insomnia Last Admin: 06/24/24 20:53 Dose: 3 mg Nicotine (Nicotine 21 Mg Patch.Td24) 21 mg TRANSDERMA DAILY [facility] Last Admin: 06/24/24 08:33 Dose: 21 mg Nicotine Polacrilex (Nicotine Polacrilex 2 Mg Gum) 4 mg BUCCAL Q2H PRN PRN Reason: Nicotine Cravings Last Admin: 06/20/24 09:08 Dose: 4 mg Ondansetron HCl (Ondansetron Odt 8 Mg Tab.Rapdis) 8 mg TRANSLINGU Q12H PRN PRN Reason: Nausea and Vomiting Last Admin: 06/17/24 21:03 Dose: 8 mg Pantoprazole Sodium (Pantoprazole Sodium 20 Mg Tablet.) 40 mg PO DAILY@0630 [facility] Last Admin: 06/25/24 06:26 Dose: 40 mg Propranolol HCl (Propranolol Hcl La 60 Mg Cap.Sa.24h) 60 mg PO BEDTIME [facility]; Protocol Last Admin: 06/24/24 20:52 Dose: 60 mg Trazodone HCl (Trazodone Hcl 50 Mg Tablet) 50 mg PO BEDTIME MRX1 PRN PRN Reason: Insomnia Last Admin: 06/24/24 20:53 Dose: 50 mg Vitamin D (Cholecalciferol (Vitamin D3) 10 Mcg Tablet) 10 mcg PO DAILY [facility] Last Admin: 06/24/24 08:34 Dose: 10 mcg Zolpidem Tartrate (Zolpidem Tartrate 5 Mg Tablet) 10 mg PO BEDTIME PRN PRN Reason: Insomnia Last Admin: 06/24/24 20:52 Dose: 10 mg Allergies Allergies Allergy/AdvReac Type Severity Reaction Status Date / Time No Known Allergies Allergy Verified 06/15/24 23:58 Assessment & Plan Assessment & Plan (1) Major depressive disorder, recurrent severe without psychotic features: Status: Acute Code(s): F33.2 - Major depressive disorder, recurrent severe without psychotic features (2) Post traumatic stress disorder (PTSD): Status: Acute Code(s): F43.10 - Post-traumatic stress disorder, unspecified (3) Fibromyalgia: Status: Acute Code(s): M79.7 - Fibromyalgia (4) Homeless: Status: Acute Code(s): Z59.00 - Homelessness unspecified Plan PATIENT WITH WORSENING ISOLATION THOUGHTS OF SUICIDE MULTIPLE PSYCHOSOCIAL STRESSORS REPORTED RECENT BRIEF COCAINE RELAPSE CONTINUE AT PRESENT ALPRAZOLAM DULOXETINE PATIENT REQUIRES INPATIENT TREATMENT FOR SAFETY AND STABILIZATION. PATIENT TEARFUL DEPRESSED OVERWHELMED AGITATED UNCLEAR EXACTLY WHY SHE IS USING A WALKER HISTORY OF FIBROMYALGIA LONG HISTORY OF DEPRESSION PTSD AT CURRENT RISK OF SUICIDE NOT IN A LOCKED SETTING . RECENT HYPOKALEMIA UNCLEAR ETIOLOGY WILL FOLLOW. HAS BEEN TREATED BY PC P WILL TRY AND GET ADDITIONAL INFORMATION. PATIENT HOPING TO REFERRED BACK TO LEGAL SPECIALIST. RESTART MED EDUCATION CONSIDER AUGMENTATION STRATEGIES MOST LIKELY WOULD BENEFIT FROM DECREASE IN ALPRAZOLAM DENIES ABUSE OR TOLERANCE ALSO ON GABAPENTIN ADMIT CONDITIONAL VOLUNTARY 5 MINUTE CHECK PT CONSULT MEDICATIONS NOTED CONSIDER AUGMENTATION WITH ABILIFY/SEROQUEL MONITOR SAFETY 06/19: Active on unit, attending groups. ambulates with walker, 5 minute safety checks. Pt continues to report feeling anxious and depressed ; pt stated, I'm worried about where I'm going to go from here . Per nursing, pt slept 6 hours. denies SI/HI/VH/AH. 06/20: Pt continues to be anxious about where she will go after discharge. Patient stated, the social sciences instructor put in referrals for the [facility] and respite but if I don't get a bed then I'll go to the [facility] . Per nursing, pt slept 8 hours. attending groups, social with peers. denies SI/HI/VH/AH. Continue current tx plan. 06/21. The patient was upset after realizing that her Xanax was lowered after being here for 3 days. Last night she slept and fall but she did not have major injuries. No changes in her mental status. Still worried about her disposition. 06/22 we increase gabapentin up to 800 mg p.o. t.i.d. with no evidence of over-sedation and reports minimal improvement of anxiety. We will keep on the same treatment for today. 06/23: Active on unit, social with peers. attending groups. Concerned about where she will go after discharge. turn out worker waiting to hear back from [facility] and respite. Patient reports increased anxiety; pt stated, I'm just worried about the next step . denies SI/HI/VH/AH. per nursing, pt slept 8 hours last night. Continue current tx plan. 06/24: Patient continues focused on disposition after discharge. Pt stated, I feel like I'm getting more anxiety everyday because I'm focused on this. When I'm not occupied with groups or talking to people, I get anxious . denies SI/HI/VH/AH. Social work referred pt to [facility]; waiting to hear back. 06/25: Active on unit, social with peers. attending groups. Pt reports she has been calling various shelters today to see if they have an open bed available for her. Continues anxious d/t where she will go after discharge;hopeful she will get a bed. she reports sleeping well. Continue current tx plan. Patient educated on: diagnosis and medication risk/benefits Reason for continued inpatient stay Substantial Risk for: med/psych decompensation Time Spent With Patient Time: Total time managing care of this patient today _20___ minutes.
[2024-06-25] MEDS: Nicotine 21 MG PATCH.TD24 TRANSDERMA (08:52)
[2024-06-25] MEDS: Gabapentin 400 MG CAPSULE 800 MG PO ×3 (08:54→20:52)
[2024-06-25] MEDS: Diclofenac Sodium Delayed Rel 50 MG TABLET.DR PO ×2 (08:54→20:52)
[2024-06-25] MEDS: Baclofen 20 MG TABLET PO ×2 (08:54→20:53)
[2024-06-25] MEDS: DULoxetine HCl 60 MG CAPSULE.DR PO (08:54)
[2024-06-25] MEDS: Cholecalciferol (Vitamin D3) 10 MCG TABLET PO (08:54)
[2024-06-25] MEDS: ALPRAZolam 0.5 MG TABLET 1 MG PO ×3 (08:54→20:51)
[2024-06-25] MEDS: Lidocaine 4 % Patch ADH..PATCH 2 PATCH TRANSDERMA (08:56)
[2024-06-25 20:00] VITALS: BP 188/81; PULSE 89; RESP 16; TEMP 36.8; O2SAT 96
[2024-06-25] MEDS: Zolpidem Tartrate 5 MG TABLET 10 MG PO (20:51)
[2024-06-25] MEDS: Propranolol HCL LA 60 MG CAP.SA.24H PO (20:52)
[2024-06-25] MEDS: hydrOXYzine HCL 25 MG TABLET PO (20:53)
[2024-06-25] MEDS: traZODone HCL 50 MG TABLET PO (20:53)
[2024-06-25] MEDS: Melatonin 3 MG TABLET PO (20:53)
[2024-06-26] MEDS: Pantoprazole Sodium 20 MG TABLET.DR 40 MG PO (06:20)
[2024-06-26] MEDS: Levothyroxine Sodium 125 MCG TABLET PO (06:20)
[2024-06-26 07:50] VITALS: BP 115/57; PULSE 61; RESP 16; TEMP 36.7; O2SAT 95
[2024-06-26] MEDS: Diclofenac Sodium Delayed Rel 50 MG TABLET.DR PO ×2 (08:57→20:28)
[2024-06-26] MEDS: ALPRAZolam 0.5 MG TABLET 1 MG PO ×3 (08:57→20:27)
[2024-06-26] MEDS: Cholecalciferol (Vitamin D3) 10 MCG TABLET PO (08:59)
[2024-06-26] MEDS: Baclofen 20 MG TABLET PO ×2 (08:59→20:28)
[2024-06-26] MEDS: DULoxetine HCl 60 MG CAPSULE.DR PO (08:59)
[2024-06-26] MEDS: Gabapentin 400 MG CAPSULE 800 MG PO ×3 (09:00→20:28)
--- NOTE | 2024-06-26 09:31 | P.PNPSI_ITS ---
Subjective Subjective Date of Service: 06/26/24 Reason For Visit: depression with si Subjective Notes: Conditional Voluntary Interim History: Pt continues to report calling various shelters to see if they have an open bed available for her. She reports feeling good other than anxious about where I'm going ; if pt does not go to respite, plan will be to [facility]. pt denies SI/HI/VH/AH. Patient reports she plans on focusing on her sobriety and plans on following up with her outpatient providers. Medication Compliance: Yes Side effects from medications: No Attending Groups: Yes Review of Systems Constitutional: Reports as per HPI Eyes: Reports as per HPI Reports as per HPI Cardiovascular: Reports as per HPI Respiratory: Reports as per HPI Gastrointestinal: Reports as per HPI Musculoskeletal: Reports as per HPI Skin/Breast: Reports as per HPI Reports as per HPI Psychiatric: Reports as per HPI Endocrine: Reports as per HPI Hematologic/Lymphatic: Reports as per HPI Allergic/Immunologic: Reports as per HPI Mental Status Exam Mental Status Exam Narrative: Pt is alert and oriented; behavior is cooperative; dressed in casual attire; mood is described as good but anxious ; eye contact appropriate; Speech is normal rate, volume and not pressured; thought process is organized and goal directed; Thought content is on tx; otherwise pertinent to relevant topics and without any delusional content, paranoid ideations or grandiosity; denies SI/HI/VH/AH. Diagnostics Vital Signs (24Hr): Vital Signs - 24 hr 06/25/24 20:00 06/26/24 07:50 Temperature 98.3 F 98.1 F Pulse Rate 89 61 Respiratory Rate 16 16 Blood Pressure 188/81 H 115/57 L Pulse Oximetry 96 95 Oxygen Delivery Method Room Air Room Air BMI result Body Mass Index 28.3 Labs 06/17/24 11:32 06/18/24 08:13 Medications Medications Current Medications Acetaminophen (Acetaminophen 325 Mg Tablet) 650 mg PO Q6H PRN PRN Reason: Headache/Pain Mild Scale (1-3) Last Admin: 06/25/24 06:26 Dose: 650 mg Al Hydroxide/Mg Hydroxide (Magnesium Hydrox/Alum Hydrox 30 Ml Oral.Susp) 30 ml PO Q6H PRN PRN Reason: Heartburn/Nausea Last Admin: 06/20/24 14:06 Dose: 30 ml Alprazolam (Alprazolam 0.5 Mg Tablet) 1 mg PO TID [facility] Last Admin: 06/26/24 08:57 Dose: 1 mg Baclofen (Baclofen 20 Mg Tablet) 20 mg PO BID [facility] Last Admin: 06/26/24 08:59 Dose: 20 mg Diclofenac Sodium (Diclofenac Sodium Delayed Rel 50 Mg Tablet.) 50 mg PO BID [facility] Last Admin: 06/26/24 08:57 Dose: 50 mg Duloxetine HCl (Duloxetine Hcl 60 Mg Capsule.) 60 mg PO DAILY [facility] Last Admin: 06/26/24 08:59 Dose: 60 mg Gabapentin (Gabapentin 400 Mg Capsule) 800 mg PO TID [facility] Last Admin: 06/26/24 09:00 Dose: 800 mg Hydroxyzine HCl (Hydroxyzine Hcl 25 Mg Tablet) 25 mg PO Q6H PRN PRN Reason: Anxiety Last Admin: 06/25/24 20:53 Dose: 25 mg Levothyroxine Sodium (Levothyroxine Sodium 125 Mcg Tablet) 125 mcg PO DAILY@0600 [facility] Last Admin: 06/26/24 06:20 Dose: 125 mcg Lidocaine (Lidocaine 4 % Patch Adh..Patch) 2 patch TRANSDERMA DAILY [facility]; Protocol Last Admin: 06/25/24 08:56 Dose: 2 patch Magnesium Hydroxide (Milk Of Magnesia 30 Ml Oral.Susp) 30 ml PO DAILY PRN PRN Reason: Constipation Melatonin (Melatonin 3 Mg Tablet) 3 mg PO BEDTIME PRN PRN Reason: Insomnia Last Admin: 06/25/24 20:53 Dose: 3 mg Nicotine (Nicotine 21 Mg Patch.Td24) 21 mg TRANSDERMA DAILY [facility] Last Admin: 06/25/24 08:52 Dose: 21 mg Nicotine Polacrilex (Nicotine Polacrilex 2 Mg Gum) 4 mg BUCCAL Q2H PRN PRN Reason: Nicotine Cravings Last Admin: 06/20/24 09:08 Dose: 4 mg Ondansetron HCl (Ondansetron Odt 8 Mg Tab.Rapdis) 8 mg TRANSLINGU Q12H PRN PRN Reason: Nausea and Vomiting Last Admin: 06/17/24 21:03 Dose: 8 mg Pantoprazole Sodium (Pantoprazole Sodium 20 Mg Tablet.) 40 mg PO DAILY@0630 [facility] Last Admin: 06/26/24 06:20 Dose: 40 mg Propranolol HCl (Propranolol Hcl La 60 Mg Cap.Sa.24h) 60 mg PO BEDTIME [facility]; Protocol Last Admin: 06/25/24 20:52 Dose: 60 mg Trazodone HCl (Trazodone Hcl 50 Mg Tablet) 50 mg PO BEDTIME MRX1 PRN PRN Reason: Insomnia Last Admin: 06/25/24 20:53 Dose: 50 mg Vitamin D (Cholecalciferol (Vitamin D3) 10 Mcg Tablet) 10 mcg PO DAILY [facility] Last Admin: 06/26/24 08:59 Dose: 10 mcg Zolpidem Tartrate (Zolpidem Tartrate 5 Mg Tablet) 10 mg PO BEDTIME PRN PRN Reason: Insomnia Last Admin: 06/25/24 20:51 Dose: 10 mg Allergies Allergies Allergy/AdvReac Type Severity Reaction Status Date / Time No Known Allergies Allergy Verified 06/15/24 23:58 Assessment & Plan Assessment & Plan (1) Major depressive disorder, recurrent severe without psychotic features: Status: Acute Code(s): F33.2 - Major depressive disorder, recurrent severe without psychotic features (2) Post traumatic stress disorder (PTSD): Status: Acute Code(s): F43.10 - Post-traumatic stress disorder, unspecified (3) Fibromyalgia: Status: Acute Code(s): M79.7 - Fibromyalgia (4) Homeless: Status: Acute Code(s): Z59.00 - Homelessness unspecified Plan PATIENT WITH WORSENING ISOLATION THOUGHTS OF SUICIDE MULTIPLE PSYCHOSOCIAL STRESSORS REPORTED RECENT BRIEF COCAINE RELAPSE CONTINUE AT PRESENT ALPRAZOLAM DULOXETINE PATIENT REQUIRES INPATIENT TREATMENT FOR SAFETY AND STABILIZATION. PATIENT TEARFUL DEPRESSED OVERWHELMED AGITATED UNCLEAR EXACTLY WHY SHE IS USING A WALKER HISTORY OF FIBROMYALGIA LONG HISTORY OF DEPRESSION PTSD AT CURRENT RISK OF SUICIDE NOT IN A LOCKED SETTING . RECENT HYPOKALEMIA UNCLEAR ETIOLOGY WILL FOLLOW. HAS BEEN TREATED BY PC P WILL TRY AND GET ADDITIONAL INFORMATION. 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 RESTART MED EDUCATION CONSIDER AUGMENTATION STRATEGIES MOST LIKELY WOULD BENEFIT FROM DECREASE IN ALPRAZOLAM DENIES ABUSE OR TOLERANCE ALSO ON GABAPENTIN ADMIT CONDITIONAL VOLUNTARY 5 MINUTE CHECK PT CONSULT MEDICATIONS NOTED CONSIDER AUGMENTATION WITH ABILIFY/SEROQUEL MONITOR SAFETY 06/19: Active on unit, attending groups. ambulates with walker, 5 minute safety checks. Pt continues to report feeling anxious and depressed ; pt stated, I'm worried about where I'm going to go from here . Per nursing, pt slept 6 hours. denies SI/HI/VH/AH. 06/20: Pt continues to be anxious about where she will go after discharge. Patient stated, the social service worker put in referrals for the [facility] and respite but if I don't get a bed then I'll go to the [facility] . Per nursing, pt slept 8 hours. attending groups, social with peers. denies SI/HI/VH/AH. Continue current tx plan. 06/21. The patient was upset after realizing that her Xanax was lowered after being here for 3 days. Last night she slept and fall but she did not have major injuries. No changes in her mental status. Still worried about her disposition. 06/22 we increase gabapentin up to 800 mg p.o. t.i.d. with no evidence of over- sedation and reports minimal improvement of anxiety. We will keep on the same treatment for today. 06/23: Active on unit, social with peers. attending groups. Concerned about where she will go after discharge. 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 Patient reports increased anxiety; pt stated, I'm just worried about the next step . denies SI/HI/VH/AH. per nursing, pt slept 8 hours last night. Continue current tx plan. 06/24: Patient continues focused on disposition after discharge. Pt stated, I feel like I'm getting more anxiety everyday because I'm focused on this. When I'm not occupied with groups or talking to people, I get anxious . denies SI/HI/VH/AH. Social work referred pt to [facility]; waiting to hear back. 06/25: Active on unit, social with peers. attending groups. Pt reports she has been calling various shelters today to see if they have an open bed available for her. Continues anxious d/t where she will go after discharge;hopeful she will get a bed. she reports sleeping well. Continue current tx plan. 06/26: Pt continues to report calling various shelters to see if they have an open bed available for her. She reports feeling good other than anxious about where I'm going ; if pt does not go to respite, plan will be to [facility]. pt denies SI/HI/VH/AH. Patient reports she plans on focusing on her sobriety and plans on following up with her outpatient providers. Patient educated on: diagnosis, medication risk/benefits, substance abuse and therapeutic strategies Reason for continued inpatient stay Substantial Risk for: stable for discharge Time Spent With Patient Time: Total time managing care of this patient today _20___ minutes.
[2024-06-26] MEDS: Lidocaine 4 % Patch ADH..PATCH 2 PATCH TRANSDERMA (10:50)
[2024-06-26] MEDS: Nicotine 21 MG PATCH.TD24 TRANSDERMA (10:52)
[2024-06-26 13:01] VITALS: BMI 40.7
[2024-06-26 20:00] VITALS: BP 135/70; PULSE 69; RESP 16; TEMP 36.6; O2SAT 95
[2024-06-26] MEDS: Zolpidem Tartrate 5 MG TABLET 10 MG PO (20:27)
[2024-06-26] MEDS: Propranolol HCL LA 60 MG CAP.SA.24H PO (20:28)
[2024-06-26] MEDS: traZODone HCL 50 MG TABLET PO (20:28)
[2024-06-26] MEDS: Melatonin 3 MG TABLET PO (20:28)
[2024-06-26] MEDS: hydrOXYzine HCL 25 MG TABLET PO (20:28)
[2024-06-27] MEDS: Levothyroxine Sodium 125 MCG TABLET PO (06:00)
[2024-06-27] MEDS: Pantoprazole Sodium 20 MG TABLET.DR 40 MG PO (06:31)
[2024-06-27 07:29] VITALS: BP 138/68; PULSE 56; RESP 16; TEMP 36.7; O2SAT 98
[2024-06-27] MEDS: Baclofen 20 MG TABLET PO (08:54)
[2024-06-27] MEDS: Diclofenac Sodium Delayed Rel 50 MG TABLET.DR PO (08:54)
[2024-06-27] MEDS: ALPRAZolam 0.5 MG TABLET 1 MG PO (08:54)
[2024-06-27] MEDS: DULoxetine HCl 60 MG CAPSULE.DR PO (08:54)
[2024-06-27] MEDS: Cholecalciferol (Vitamin D3) 10 MCG TABLET PO (08:54)
[2024-06-27] MEDS: Gabapentin 400 MG CAPSULE 800 MG PO (08:54)
[2024-06-27] MEDS: Nicotine 21 MG PATCH.TD24 TRANSDERMA (08:54)
[2024-06-27] MEDS: Lidocaine 4 % Patch ADH..PATCH 2 PATCH TRANSDERMA (08:55)
--- NOTE | 2024-06-27 09:29 | P.DS_ITS ---
DS: Providers Provider Date of Service: 06/27/24 Date of admission: 06/17/24 14:32 Date of discharge: 06/27/24 Primary care physician: Conrad Briggs MD Attending physician on admission: Daniel Montez Attending physician on discharge: Dwayne Orta Discharging clinician: Earlene Nails DS: Diagnosis Discharge Diagnosis (1) Major depressive disorder, recurrent severe without psychotic features: Status: Acute (2) Post traumatic stress disorder (PTSD): Status: Acute (3) Fibromyalgia: Status: Acute (4) Homeless: Status: Acute DS: Medications Discharge Medications Home Medications: Home Medications ?Medication ?Instructions ?Recorded ?Confirmed diclofenac potassium 50 mg tablet 50 mg PO BID PRN Pain 06/16/24 06/16/24 Previous Rx's ?Medication ?Instructions ?Recorded alprazolam 1 mg tablet 1 mg PO TID 7 days #21 tabs 06/27/24 baclofen 20 mg tablet 20 mg PO BID 30 days #60 tabs 06/27/24 cholecalciferol (vitamin D3) 10 10 mcg PO DAILY 30 days #30 tabs 06/27/24 mcg (400 unit) tablet (Vitamin D3) duloxetine 60 mg capsule,delayed 60 mg PO DAILY 30 days #30 caps 06/27/24 release gabapentin 800 mg tablet 800 mg PO TID 30 days #90 tabs 06/27/24 levothyroxine 125 mcg tablet 125 mcg PO DAILY@0600 30 days #30 06/27/24 tabs melatonin 3 mg tablet 3 mg PO BEDTIME PRN Insomnia 30 06/27/24 days #30 tabs pantoprazole 40 mg tablet,delayed 40 mg PO DAILY@0630 30 days #30 06/27/24 release tabs propranolol 60 mg capsule,24 60 mg PO BEDTIME 30 days #30 caps 06/27/24 hr,extended release zolpidem 10 mg tablet 10 mg PO BEDTIME PRN Insomnia 30 06/27/24 days #30 tabs Mental Status Exam Mental Status Exam Narrative: Pt is alert and oriented; behavior is cooperative; dressed in casual attire; mood is described as good ; eye contact appropriate; Speech is normal rate, volume and not pressured; thought process is organized and goal directed; Thought content is on tx; otherwise pertinent to relevant topics and without any delusional content, paranoid ideations or grandiosity; denies SI/HI/VH/AH. Data Data Completed and Pending Completed studies during hospitalization [Text1]: 06/18/24 Unknown Urine clean catch - Clean Catch Midstream Urine Culture - Final 06/16/24 10:25 Urine clean catch - Clean Catch Midstream Urine Culture - Final DS: Summary Hospital Course Hospital Course: The patient has a history of a recurrent mood disorder, PTSD who was transferred from the emergency room on a conditional voluntary secondary to significant thoughts to kill herself. The patient had been evicted from her apartment circumstances not totally clear but she has been increasingly despondent with limited connections in the community and no longer being followed by [facility]. Patient had had surgery for a small-bowel obstruction number of months ago and was inpatient for an extended period time at [facility]. She was noted to have significant hypokalemia in the emergency room which was corrected. Patient reports feeling despondent in an ongoing way states she has been getting her medications through her primary care. She did have thoughts to run into traffic she had had thoughts to hang herself. Patient states she has been dealing with fibromyalgia for a number years and has been gabapentin she has also been on alprazolam 2 mg 3 times a day duloxetine 60 mg daily levothyroxine 125 mcg daily propranolol daily and did have Ambien and HS for insomnia. Patient states she was overwhelmed by where she was living in [place] surrounded by substance use. She denies any opiate use states she did briefly do crack cocaine was a serious crack cocaine at 30 years ago and states she had been sober. Does admit to fairly regular marijuana use. Patient has also had significant weight loss ongoing despair not connected family has been feeling quite depressed disconnected. PATIENT WITH WORSENING ISOLATION THOUGHTS OF SUICIDE MULTIPLE PSYCHOSOCIAL STRESSORS REPORTED RECENT BRIEF COCAINE RELAPSE CONTINUE AT PRESENT ALPRAZOLAM DULOXETINE PATIENT REQUIRES INPATIENT TREATMENT FOR SAFETY AND STABILIZATION. PATIENT TEARFUL DEPRESSED OVERWHELMED AGITATED UNCLEAR EXACTLY WHY SHE IS USING A WALKER HISTORY OF FIBROMYALGIA LONG HISTORY OF DEPRESSION PTSD AT CURRENT RISK OF SUICIDE NOT IN A LOCKED SETTING . RECENT HYPOKALEMIA UNCLEAR ETIOLOGY WILL FOLLOW. HAS BEEN TREATED BY PC P WILL TRY AND GET ADDITIONAL INFORMATION. PATIENT HOPING TO REFERRED BACK TO [facility]. RESTART MED EDUCATION CONSIDER AUGMENTATION STRATEGIES MOST LIKELY WOULD BENEFIT FROM DECREASE IN ALPRAZOLAM DENIES ABUSE OR TOLERANCE ALSO ON GABAPENTIN ADMIT CONDITIONAL VOLUNTARY 5 MINUTE CHECK PT CONSULT MEDICATIONS NOTED CONSIDER AUGMENTATION WITH ABILIFY/SEROQUEL MONITOR SAFETY Active on unit, attending groups. ambulates with walker, 5 minute safety checks. Pt continues to report feeling anxious and depressed ; pt stated, I'm worried about where I'm going to go from here . Per nursing, pt slept 6 hours. denies SI/HI/VH/AH. Pt continues to be anxious about where she will go after discharge. Patient stated, the social human services assistants put in referrals for the [facility] and respite but if I don't get a bed then I'll go to the correction . Per nursing, pt slept 8 hours. attending groups, social with peers. denies SI/HI/VH/AH. Continue current tx plan. The patient was upset after realizing that her Xanax was lowered after being here for 3 days. Last night she slept and fall but she did not have major injuries. No changes in her mental status. Still worried about her disposition. we increase gabapentin up to 800 mg p.o. t.i.d. with no evidence of over- sedation and reports minimal improvement of anxiety. We will keep on the same treatment for today. Active on unit, social with peers. attending groups. Concerned about where she will go after discharge. tube worker waiting to hear back from [facility] and respite. Patient reports increased anxiety; pt stated, I'm just worried about the next step . denies SI/HI/VH/AH. per nursing, pt slept 8 hours last night. Continue current tx plan. Patient continues focused on disposition after discharge. Pt stated, I feel like I'm getting more anxiety everyday because I'm focused on this. When I'm not occupied with groups or talking to people, I get anxious . denies SI/HI/VH/AH. Social work referred pt to [facility]; waiting to hear back. Active on unit, social with peers. attending groups. Pt reports she has been calling various shelters today to see if they have an open bed available for her. Continues anxious d/t where she will go after discharge;hopeful she will get a bed. she reports sleeping well. Continue current tx plan. Pt continues to report calling various shelters to see if they have an open bed available for her. She reports feeling good other than anxious about where I'm going ; if pt does not go to respite, plan will be to discharge to [facility]. pt denies SI/HI/VH/AH. Patient reports she plans on focusing on her sobriety and plans on following up with her outpatient providers. Patient reports feeling good today; pt was accepted to [facility]. She is focused on treatment. Pt reports she plans on following up with her outpatient providers. denies SI/HI/VH/AH. Time spent discussing smoking cessation with patient: 3 to 10 minutes Status at Discharge Cognitive/behavioral status at discharge: Patient was interviewed prior to discharge and found to be fully oriented and without SI or HI. Patient has insight and demonstrates good judgment in terms of wanting to pursue treatment. Patient has a safety plan that includes presenting to the closest ER or calling 911 if feeling unsafe. Functional status at discharge: independent ambulation Overall status at discharge: patient is back to baseline Time Spent with Patient Time attestation: Total time managing care of this patient today _20___ minutes. Time spent: Less than 30 minutes Discharge Plan Discharge Anticipated Discharge Date/Time: 06/27/24 11:30 Patient Disposition: [facility] Discharge Diagnosis: MDD, PTSD, cocaine use d/o Referrals: [facility] ([facility]) [Other] - 1 Week (Bring ID, Insurance card, hospital discharge paperwork Walk in hours Sunday and Sunday 8am-5pm Sunday- 8am-6pm) Conrad Briggs MD [Primary Care Provider] - 07/04/24 1:00 pm (FAX to [phone] Briggs) Discharge Medications: New alprazolam 1 mg tablet 1 mg PO TID 7 Days Qty: 21 3RF gabapentin 800 mg tablet 800 mg PO TID 30 Days Qty: 90 0RF Continued diclofenac potassium 50 mg tablet 50 mg PO BID PRN (Reason: Pain) propranolol 60 mg capsule,extended release 24 hr 60 mg PO BEDTIME 30 Days Qty: 30 0RF melatonin 3 mg tablet 3 mg PO BEDTIME PRN (Reason: Insomnia) 30 Days Qty: 30 0RF baclofen 20 mg tablet 20 mg PO BID 30 Days Qty: 60 0RF pantoprazole 40 mg tablet,delayed release (DR/EC) 40 mg PO DAILY@0630 30 Days Qty: 30 0RF levothyroxine 125 mcg tablet 125 mcg PO DAILY@0600 30 Days Qty: 30 0RF zolpidem 10 mg tablet 10 mg PO BEDTIME PRN (Reason: Insomnia) 30 Days Qty: 30 0RF cholecalciferol (vitamin D3) [Vitamin D3] 10 mcg (400 unit) tablet 10 mcg PO DAILY 30 Days Qty: 30 0RF duloxetine 60 mg capsule,delayed release(DR/EC) 60 mg PO DAILY 30 Days Qty: 30 0RF Discontinued acetaminophen 325 mg tablet 650 mg PO Q6H PRN (Reason: Mild Pain (Scale Score 1-4)) gabapentin 600 mg tablet 600 mg PO TID alprazolam 2 mg tablet 2 mg PO TID PRN (Reason: Anxiety) Discharge Orders: Discharge Order (Routine); Ordered 06/27/24 Ordered By: Earlene Nails Diet: Regular diet Activity on Discharge: As tolerated Stand Alone Forms: Patient Portal Discharge page, Community Support Print Language: Irish Care Plan Goals: Maintain mood and safe behaviors Take medications as prescribed Continue to pursue sobriety Practice coping skills Continue with outpatient providers and reach out to them as needed Health Concerns: Mood stability and behaviors Sobriety Plan of Treatment: Follow up with your PCP, psychiatric provider and other outpatient providers regarding above concerns Take medications as prescribed Assessment: Patient was interviewed prior to discharge and found to be fully oriented and without SI or HI. Patient has insight and demonstrates good judgment in terms of wanting to pursue treatment. Patient has a safety plan that includes presenting to the closest ER or calling 911 if feeling unsafe. Patient Instructions: Urinary Tract Infection in Women (DC), Potassium Content of Foods List (ED), Depression (DC) Discharge Date/Time: 06/27/24 10:56
== END 2024-06-27 10:56 | disposition home or self-care (01) | DRG 751 ==
LOC: HO.ED 06-16 12:29 → HO.PADLT16 06-17 14:39
PROVIDERS: Internal Medicine; Physician Assistant; Physician Assistant Medical; Admitting Provider Registered Nurse; Emergency Provider Emergency Medicine; PCP Internal Medicine; Responsible Provider Registered Nurse; Visit Provider Psychiatry & Neurology Psychiatry
DX: F33.2 Major depressive disorder, recurrent severe without psychotic features (principal); R45.851 Suicidal ideations; E03.9 Hypothyroidism, unspecified; F43.10 Post-traumatic stress disorder, unspecified; M79.7 Fibromyalgia; F17.210 Nicotine dependence, cigarettes, uncomplicated; Z71.6 Tobacco abuse counseling; Z59.02 Unsheltered homelessness; Z79.890 Hormone replacement therapy; Z79.899 Other long term (current) drug therapy
CPT/HCPCS: 36415; 80048; 80053; 80061; 80143; 80179; 80307; 81001; 82550; 83735; 84132; 85025; 87086; 93005; 97161; 99285; J0696; J3480; S9485

== ENCOUNTER → 2024-06-16 02:49 | Outpatient (BNV) | payer OTHER, SELFPAY | PROVIDERS: Emergency Provider Emergency Medicine; PCP Internal Medicine; Visit Provider Internal Medicine Cardiovascular Disease | DX: R94.31 Abnormal electrocardiogram [ECG] [EKG] (principal) | CPT/HCPCS: 93010 ==

== ENCOUNTER 2024-06-17 14:32 | Outpatient (BNV) | payer OTHER, SELFPAY | END 2024-06-17 14:34 | PROVIDERS: Admitting Provider Registered Nurse; Emergency Provider Emergency Medicine; PCP Internal Medicine; Visit Provider Internal Medicine Cardiovascular Disease | DX: R94.31 Abnormal electrocardiogram [ECG] [EKG] (principal) | CPT/HCPCS: 93010 ==

== ENCOUNTER → 2024-06-17 14:32 | Outpatient (BNV) | payer OTHER, SELFPAY | PROVIDERS: Admitting Provider Registered Nurse; Emergency Provider Emergency Medicine; PCP Internal Medicine; Visit Provider Psychiatry & Neurology Psychiatry | DX: F33.2 Major depressive disorder, recurrent severe without psychotic features (principal); F43.10 Post-traumatic stress disorder, unspecified; M79.7 Fibromyalgia; Z59.00 Homelessness unspecified | CPT/HCPCS: 90792 ==

== ENCOUNTER → 2024-06-17 14:32 | Outpatient (BNV) | payer OTHER, SELFPAY | PROVIDERS: Admitting Provider Registered Nurse; Emergency Provider Emergency Medicine; PCP Internal Medicine; Responsible Provider Registered Nurse; Visit Provider Registered Nurse | DX: F33.2 Major depressive disorder, recurrent severe without psychotic features (principal); F43.11 Post-traumatic stress disorder, acute; M79.7 Fibromyalgia; Z59.00 Homelessness unspecified | CPT/HCPCS: 99231; 99232 ==

== ENCOUNTER 2024-08-17 14:28 | Inpatient (IN) | payer OTHER, SELFPAY ==
--- NOTE | 2024-08-17 15:47 | ED.GENADULT ---
HPI - General Adult General Chief complaint: Psychiatric Symptoms Stated complaint: Doesnt feel safe Time Seen by Provider: 08/17/24 16:29 Related Data Home Medications ?Medication ?Instructions ?Recorded ?Confirmed diclofenac potassium 50 mg tablet 50 mg PO BID PRN Pain 06/16/24 08/17/24 acetaminophen 650 mg 650 mg PO BID 08/17/24 08/17/24 tablet,extended release (8 Hour Pain Reliever) amlodipine 10 mg tablet 10 mg PO DAILY 08/17/24 08/17/24 gabapentin 800 mg tablet 800 mg PO QID 08/17/24 08/17/24 ipratropium 0.5 mg-albuterol 3 mg 3 ml inhalation QID 08/17/24 08/17/24 (2.5 mg base)/3 mL nebulization soln lidocaine 5 % topical patch 1 patch topical DAILY 08/17/24 08/17/24 nicotine (polacrilex) 2 mg gum 2 mg buccal Q1-2H 08/17/24 08/17/24 tramadol 50 mg tablet 50 mg PO TID PRN Pain (Scale Score 08/17/24 08/17/24 4-6) Previous Rx's ?Medication ?Instructions ?Recorded alprazolam 1 mg tablet 1 mg PO TID 7 days #21 tabs 06/27/24 baclofen 20 mg tablet 20 mg PO BID 30 days #60 tabs 06/27/24 cholecalciferol (vitamin D3) 10 10 mcg PO DAILY 30 days #30 tabs 06/27/24 mcg (400 unit) tablet (Vitamin D3) duloxetine 60 mg capsule,delayed 60 mg PO DAILY 30 days #30 caps 06/27/24 release levothyroxine 125 mcg tablet 125 mcg PO DAILY@0600 30 days #30 06/27/24 tabs melatonin 3 mg tablet 3 mg PO BEDTIME PRN Insomnia 30 06/27/24 days #30 tabs pantoprazole 40 mg tablet,delayed 40 mg PO DAILY@0630 30 days #30 06/27/24 release tabs propranolol 60 mg capsule,24 60 mg PO BEDTIME 30 days #30 caps 06/27/24 hr,extended release zolpidem 10 mg tablet 10 mg PO BEDTIME PRN Insomnia 30 06/27/24 days #30 tabs Allergies Allergy/AdvReac Type Severity Reaction Status Date / Time No Known Allergies Allergy Verified 08/17/24 15:50 PMFSH Past Medical History Medical History Acute hypokalemia Depression Post traumatic stress disorder (PTSD) Major depressive disorder, recurrent severe without psychotic features Fibromyalgia Social History Social History Household Members: None Housing: Homeless Do you presently have visiting nurse or other home services: No Alcohol intake: current Alcohol intake frequency: 0-2 drinks per day Comment: 5u Patient Tobacco Use Status: Current everyday Tobacco user Tobacco use type: Cigarette Cigarettes Per Day: 10 Years Smoked: 35 Smoked in Last 30 Days: No e-Cigarette/Vaping Use: Never Used Second Hand Smoke Exposure: Yes Use of substances other than those prescribed or required for medical reasons: No Substance Use Type: Crack/Cocaine and Marijuana Advance Directives: No Advance Directives Information Provided: No Do you have a plan to hurt others: No Plan Patient : No service: No Sexual orientation: Unable to collect Physical Exam ED Vital Signs: Vital Signs - 24 hr 08/17/24 15:48 08/17/24 16:33 Temperature 97.9 F Pulse Rate 81 Respiratory Rate 18 20 Blood Pressure 150/91 H Pulse Oximetry 93 Oxygen Delivery Method Room Air BMI result Body Mass Index 31.9 Course Course Course Narrative: This is an RME performed by Leonid Gallagher CNP: Additional HPI, ROS, PE not included below will be deferred to primary provider. Patient is a 54-year-old female who presents to the emergency department reporting that mentally I do not feel safe?. Endorsing suicidal ideations without any specific plan. Denies homicidal ideations. Denies hallucinations. Plan: Serum labs for medical clearance, moved to [facility] pod, care team evaluation Reevaluation(s) Reevaluation #1: See additional note dated 08/17/2024 Medications Administered Generic Name Dose Route Start Last Admin Trade Name Freq PRN Reason Stop Dose Admin Albuterol/Ipratropium 3 ml 08/17/24 20:00 08/17/24 20:27 Albuterol/Iprat 2.5/0.5mg 3 Ml Ampul.Neb INHALE Not Given RQID VICKI Medical Decision Making Lab Data 08/17/24 17:29 01/12/25 17:29 Labs: Lab Results 08/17/24 Range/Units 17:29 WBC 6.7 (4.8-10.8) X10*3/uL RBC 4.00 L (4.20-5.50) X10*6/uL Hgb 10.4 L (12.0-16.0) g/dl Hct 32.8 L (37.0-47.0) % MCV 82.0 (80.0-98.0) fL MCH 26.0 L (27.0-33.0) pg MCHC 31.7 (31.0-35.0) g/dl RDW 18.6 H (11.0-16.0) % Plt Count 495 H (160-400) X10*3/uL MPV 9.3 L (9.4-12.3) fL Immature Gran % (Auto) 0.7 H (0.0-0.4) % Neut % (Auto) 68.0 (45-73) % Lymph % (Auto) 20.5 (20-40) % Coles % (Auto) 8.0 (2-11) % Eos % (Auto) 1.3 (0-4) % Baso % (Auto) 1.5 (0-2) % Lymph # (Auto) 1.4 (1.2-4.9) X10*3/uL Coles # (Auto) 0.5 (0.1-1.2) X10*3/uL Eos # (Auto) 0.1 (0.0-0.4) X10*3/uL Baso # (Auto) 0.1 (0.0-0.2) X10*3/uL Abs Immat Gran (auto) 0.05 H (0.00-0.03) X10*3/uL Absolute Neuts (auto) 4.6 (2.0-8.3) x10*3/uL Absolute Nucleated RBC 0.000 (0.0-0.012) X10*3/uL Nucleated RBC % (auto) 0.0 (0.0-0.2) /100WBC Sodium 139 (135-145) mmol/L Potassium 4.1 (3.3-5.1) mmol/L Chloride 106 (96-108) mmol/L Carbon Dioxide 27 (22-29) mmol/L Anion Gap 10 L (12-20) BUN 20 H (9-16) mg/dL Creatinine 0.87 (0.5-1.4) mg/dL Estim Creat Clear Calc 93.1 Estimated GFR > 60 Random Glucose 126 H (60-115) mg/dL Calcium 10.4 H D (8.4-10.2) mg/dL Total Bilirubin 0.3 (0.0-1.0) mg/dL AST 276 H (5-31) U/L ALT 171 H (0-31) U/L Alkaline Phosphatase 355 H (39-117) U/L Total Protein 7.7 (6.5-8.0) g/dL Albumin 4.0 (3.5-5.0) g/dL Ethyl Alcohol < 10 mg/dL Discharge Plan Discharge Clinical Impression: Fibromyalgia, Homeless, Depression Patient Disposition: Still a Patient Prescriptions: No Action ipratropium-albuterol 0.5 mg-3 mg(2.5 mg base)/3 mL solution for nebulization 3 ml inhalation QID nicotine (polacrilex) 2 mg gum 2 mg buccal Q1-2H tramadol 50 mg tablet 50 mg PO TID PRN (Reason: Pain (Scale Score 4-6)) acetaminophen [8 Hour Pain Reliever] 650 mg tablet extended release 650 mg PO BID amlodipine 10 mg tablet 10 mg PO DAILY lidocaine 5 % adhesive patch,medicated 1 patch topical DAILY gabapentin 800 mg tablet 800 mg PO QID diclofenac potassium 50 mg tablet 50 mg PO BID PRN (Reason: Pain) alprazolam 1 mg tablet 1 mg PO TID 7 Days Qty: 21 3RF propranolol 60 mg capsule,extended release 24 hr 60 mg PO BEDTIME 30 Days Qty: 30 0RF melatonin 3 mg tablet 3 mg PO BEDTIME PRN (Reason: Insomnia) 30 Days Qty: 30 0RF baclofen 20 mg tablet 20 mg PO BID 30 Days Qty: 60 0RF pantoprazole 40 mg tablet,delayed release (DR/EC) 40 mg PO DAILY@0630 30 Days Qty: 30 0RF levothyroxine 125 mcg tablet 125 mcg PO DAILY@0600 30 Days Qty: 30 0RF zolpidem 10 mg tablet 10 mg PO BEDTIME PRN (Reason: Insomnia) 30 Days Qty: 30 0RF cholecalciferol (vitamin D3) [Vitamin D3] 10 mcg (400 unit) tablet 10 mcg PO DAILY 30 Days Qty: 30 0RF duloxetine 60 mg capsule,delayed release(DR/EC) 60 mg PO DAILY 30 Days Qty: 30 0RF Interventions: [place]-Suicide Risk Severity Scale Last Done: 08/17/24 16:31 Print Language: Israeli
[2024-08-17 15:48] VITALS: BP 150/91; PULSE 81; RESP 18; TEMP 36.6; O2SAT 93; BMI 31.9
[2024-08-17 16:33] VITALS: RESP 20
--- NOTE | 2024-08-17 16:42 | ED.PSYCH ---
HPI - Psych General Chief Complaint: Psychiatric Symptoms Stated Complaint: Doesnt feel safe Time Seen by Provider: 08/17/24 16:29 History of Present Illness HPI Narrative: Patient is a 54-year-old female with a history of fibromyalgia history of being homeless history of PTSD presented today with having suicidal thoughts. No specific plans. Patient denies any recreational drug use. Related Data Home Medications ?Medication ?Instructions ?Recorded ?Confirmed diclofenac potassium 50 mg tablet 50 mg PO BID PRN Pain 06/16/24 08/17/24 acetaminophen 650 mg 650 mg PO BID 08/17/24 08/17/24 tablet,extended release (8 Hour Pain Reliever) amlodipine 10 mg tablet 10 mg PO DAILY 08/17/24 08/17/24 gabapentin 800 mg tablet 800 mg PO QID 08/17/24 08/17/24 ipratropium 0.5 mg-albuterol 3 mg 3 ml inhalation QID 08/17/24 08/17/24 (2.5 mg base)/3 mL nebulization soln lidocaine 5 % topical patch 1 patch topical DAILY 08/17/24 08/17/24 nicotine (polacrilex) 2 mg gum 2 mg buccal Q1-2H 08/17/24 08/17/24 tramadol 50 mg tablet 50 mg PO TID PRN Pain (Scale Score 08/17/24 08/17/24 4-6) Previous Rx's ?Medication ?Instructions ?Recorded alprazolam 1 mg tablet 1 mg PO TID 7 days #21 tabs 06/27/24 baclofen 20 mg tablet 20 mg PO BID 30 days #60 tabs 06/27/24 cholecalciferol (vitamin D3) 10 10 mcg PO DAILY 30 days #30 tabs 06/27/24 mcg (400 unit) tablet (Vitamin D3) duloxetine 60 mg capsule,delayed 60 mg PO DAILY 30 days #30 caps 06/27/24 release levothyroxine 125 mcg tablet 125 mcg PO DAILY@0600 30 days #30 06/27/24 tabs melatonin 3 mg tablet 3 mg PO BEDTIME PRN Insomnia 30 06/27/24 days #30 tabs pantoprazole 40 mg tablet,delayed 40 mg PO DAILY@0630 30 days #30 06/27/24 release tabs propranolol 60 mg capsule,24 60 mg PO BEDTIME 30 days #30 caps 06/27/24 hr,extended release zolpidem 10 mg tablet 10 mg PO BEDTIME PRN Insomnia 30 06/27/24 days #30 tabs Allergies Allergy/AdvReac Type Severity Reaction Status Date / Time No Known Allergies Allergy Verified 08/17/24 15:50 Review of Systems Review of Systems: Positive suicidal ideation Yes all other systems are reviewed and are negative [facility] Past Medical History Attestation statement: The following information was validated with the patient. Medical History Acute hypokalemia Depression Post traumatic stress disorder (PTSD) Major depressive disorder, recurrent severe without psychotic features Fibromyalgia Social History Social History Household Members: None Housing: Homeless Do you presently have visiting nurse or other home services: No Alcohol intake: current Alcohol intake frequency: 0-2 drinks per day Comment: 5u Patient Tobacco Use Status: Current everyday Tobacco user Tobacco use type: Cigarette Cigarettes Per Day: 10 Years Smoked: 35 Smoked in Last 30 Days: No e-Cigarette/Vaping Use: Never Used Second Hand Smoke Exposure: Yes Use of substances other than those prescribed or required for medical reasons: No Substance Use Type: Crack/Cocaine and Marijuana Advance Directives: No Advance Directives Information Provided: No Do you have a plan to hurt others: No Plan Patient : No service: No Sexual orientation: Unable to collect Physical Exam Vital Signs: Vital Signs: Last Vital Signs Temp 97.9 F 08/17/24 15:48 Pulse 81 08/17/24 15:48 Resp 20 08/17/24 16:33 BP 150/91 H 08/17/24 15:48 Pulse Ox 93 08/17/24 15:48 O2 Del Method Room Air 08/17/24 15:48 BMI result Body Mass Index 31.9 Appearance: Alert. Oriented X3. No acute distress. Eyes: Pupils equal, round and reactive to light. ENT: Pharynx normal. Neck: Normal inspection. Neck supple. No lymph nodes noted. No crepitus CVS: Normal heart rate and rhythm. Pulses normal. Normal S1 and S2 Respiratory: No respiratory distress. Breath sounds normal. No Wheezing. No rales Abdomen: Soft and nontender. No rigidity. No distention. good BS x4 Skin: Skin warm and dry. Normal skin color. Normal skin turgor. Extremities: No lower extremity edema. Neurovascular intact to all extremities. No Lacerations. No Rash Neuro: Oriented X 3. No motor deficit. No sensory deficit. Moving all extermities. No slurred speech. Cranial nerves grossly intact Medications Administered Generic Name Dose Route Start Last Admin Trade Name Freq PRN Reason Stop Dose Admin Albuterol/Ipratropium 3 ml 08/17/24 20:00 08/17/24 20:27 Albuterol/Iprat 2.5/0.5mg 3 Ml Ampul.Neb INHALE Not Given RQID VICKI Medical Decision Making Medical Decision Making [facility] Narrative: Patient well-appearing no specific plan. No acute distress. Will get crisis evaluate patient. Labs are negative. No guns in the house. Differential Diagnosis Differential Diagnoses: The differential diagnosis associated with the presentation includes Depression, anxiety Admission/Observation Consideration of admission/observation: Escalation of care including admission/observation considered Lab Data [facility] Lab Attestation statement: I reviewed the patient's lab results. 08/17/24 17:29 08/17/24 17:29 Labs: Lab Results 08/17/24 Range/Units 17:29 WBC 6.7 (4.8-10.8) X10*3/uL RBC 4.00 L (4.20-5.50) X10*6/uL Hgb 10.4 L (12.0-16.0) g/dl Hct 32.8 L (37.0-47.0) % MCV 82.0 (80.0-98.0) fL MCH 26.0 L (27.0-33.0) pg MCHC 31.7 (31.0-35.0) g/dl RDW 18.6 H (11.0-16.0) % Plt Count 495 H (160-400) X10*3/uL MPV 9.3 L (9.4-12.3) fL Immature Gran % (Auto) 0.7 H (0.0-0.4) % Neut % (Auto) 68.0 (45-73) % Lymph % (Auto) 20.5 (20-40) % [place] % (Auto) 8.0 (2-11) % Eos % (Auto) 1.3 (0-4) % Baso % (Auto) 1.5 (0-2) % Lymph # (Auto) 1.4 (1.2-4.9) X10*3/uL [place] # (Auto) 0.5 (0.1-1.2) X10*3/uL Eos # (Auto) 0.1 (0.0-0.4) X10*3/uL Baso # (Auto) 0.1 (0.0-0.2) X10*3/uL Abs Immat Gran (auto) 0.05 H (0.00-0.03) X10*3/uL Absolute Neuts (auto) 4.6 (2.0-8.3) x10*3/uL Absolute Nucleated RBC 0.000 (0.0-0.012) X10*3/uL Nucleated RBC % (auto) 0.0 (0.0-0.2) /100WBC Sodium 139 (135-145) mmol/L Potassium 4.1 (3.3-5.1) mmol/L Chloride 106 (96-108) mmol/L Carbon Dioxide 27 (22-29) mmol/L Anion Gap 10 L (12-20) BUN 20 H (9-16) mg/dL Creatinine 0.87 (0.5-1.4) mg/dL Estim Creat Clear Calc 93.1 Estimated GFR > 60 Random Glucose 126 H (60-115) mg/dL Calcium 10.4 H D (8.4-10.2) mg/dL Total Bilirubin 0.3 (0.0-1.0) mg/dL AST 276 H (5-31) U/L ALT 171 H (0-31) U/L Alkaline Phosphatase 355 H (39-117) U/L Total Protein 7.7 (6.5-8.0) g/dL Albumin 4.0 (3.5-5.0) g/dL Ethyl Alcohol < 10 mg/dL Discharge Plan Discharge Clinical Impression: Fibromyalgia, Homeless, Depression Patient Disposition: Still a Patient Prescriptions: No Action ipratropium-albuterol 0.5 mg-3 mg(2.5 mg base)/3 mL solution for nebulization 3 ml inhalation QID nicotine (polacrilex) 2 mg gum 2 mg buccal Q1-2H tramadol 50 mg tablet 50 mg PO TID PRN (Reason: Pain (Scale Score 4-6)) acetaminophen [8 Hour Pain Reliever] 650 mg tablet extended release 650 mg PO BID amlodipine 10 mg tablet 10 mg PO DAILY lidocaine 5 % adhesive patch,medicated 1 patch topical DAILY gabapentin 800 mg tablet 800 mg PO QID diclofenac potassium 50 mg tablet 50 mg PO BID PRN (Reason: Pain) alprazolam 1 mg tablet 1 mg PO TID 7 Days Qty: 21 3RF propranolol 60 mg capsule,extended release 24 hr 60 mg PO BEDTIME 30 Days Qty: 30 0RF melatonin 3 mg tablet 3 mg PO BEDTIME PRN (Reason: Insomnia) 30 Days Qty: 30 0RF baclofen 20 mg tablet 20 mg PO BID 30 Days Qty: 60 0RF pantoprazole 40 mg tablet,delayed release (DR/EC) 40 mg PO DAILY@0630 30 Days Qty: 30 0RF levothyroxine 125 mcg tablet 125 mcg PO DAILY@0600 30 Days Qty: 30 0RF zolpidem 10 mg tablet 10 mg PO BEDTIME PRN (Reason: Insomnia) 30 Days Qty: 30 0RF cholecalciferol (vitamin D3) [Vitamin D3] 10 mcg (400 unit) tablet 10 mcg PO DAILY 30 Days Qty: 30 0RF duloxetine 60 mg capsule,delayed release(DR/EC) 60 mg PO DAILY 30 Days Qty: 30 0RF Interventions: [place]-Suicide Risk Severity Scale Last Done: 08/17/24 16:31 Print Language: Ethiopian
[2024-08-17 17:32] LABS: MANUAL DIFF FLAG NO
[2024-08-17 17:34] LABS: Basophils Absolute Auto 0.1 X10*3/uL (0.0-0.2); Basophils Percent Auto 1.5 % (0-2); Eosinophils Absolute Auto 0.1 X10*3/uL (0.0-0.4); Eosinophils Percent Auto 1.3 % (0-4); Hematocrit 32.8 % (37.0-47.0); Hemoglobin 10.4 g/dl (12.0-16.0); Imm Gran Abs Auto 0.05 X10*3/uL (0.00-0.03); Imm Gran Pct Auto 0.7 % (0.0-0.4); Lymphocytes Absolute Auto 1.4 X10*3/uL (1.2-4.9); Lymphocytes Percent Auto 20.5 % (20-40); Mean Corpuscular HGB Conc 31.7 g/dl (31.0-35.0); Mean Platelet Volume 9.3 fL (9.4-12.3); Monocytes Absolute Auto 0.5 X10*3/uL (0.1-1.2); Neutrophils Absolute Auto 4.6 x10*3/uL (2.0-8.3); Platelet Count 495 X10*3/uL (160-400); Red Cell Distribution Width 18.6 % (11.0-16.0); White Blood Count 6.7 X10*3/uL (4.8-10.8)
[2024-08-17 17:50] LABS: Alanine Aminotransferase 171 U/L (0-31); Alkaline Phosphatase 355 U/L (39-117); Anion Gap 10 (12-20); Aspartate Amino Transferase 276 U/L (5-31); Bilirubin Total 0.3 mg/dL (0.0-1.0); Blood Urea Nitrogen 20 mg/dL (9-16); Calcium 10.4 mg/dL (8.4-10.2); Carbon Dioxide 27 mmol/L (22-29); Chloride 106 mmol/L (96-108); Creatinine Clr Calc Pharmacy 93.1; Estimated Glomerular Filt Rate > 60; Ethanol < 10 mg/dL; Glucose Random 126 mg/dL (60-115); Potassium 4.1 mmol/L (3.3-5.1); Sodium 139 mmol/L (135-145); Total Protein 7.7 g/dL (6.5-8.0)
--- NOTE | 2024-08-17 19:24 | PC.NURSE ---
patient soon after t/w's arrival to unit asked for medications that she had changed at [facility] and t/w told client that on an inpatient they may speak to a provider but without current orders they would not be changed. then minutes later patient began to make negative cooments about limit setting in an attempt to antagonize t/w.
--- NOTE | 2024-08-17 19:57 | PC.NURSE ---
declines blood pressure recently interacted w clinical coordinator which bp is reqired for this medication
--- NOTE | 2024-08-17 20:33 | PC.NURSE ---
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
--- NOTE | 2024-08-17 20:48 | PC.NURSE ---
client making loud comments to television in room, client makes also rude talking back comments when client is directed on what bathroom to use i heard you i have ears , whistling while in bathroom. made requests about xanxax being increased, provider notified
[2024-08-17] MEDS: ALPRAZolam 0.5 MG TABLET 1 MG PO ×2 (21:13→21:14)
[2024-08-17] MEDS: Baclofen 20 MG TABLET PO (21:14)
[2024-08-17] MEDS: Gabapentin 400 MG CAPSULE 800 MG PO (21:16)
[2024-08-17] MEDS: traMADoL HCL 50 MG TABLET PO (21:23)
[2024-08-17] MEDS: Zolpidem Tartrate 5 MG TABLET 10 MG PO (21:24)
[2024-08-17 21:42] VITALS: BP 160/68; PULSE 64; RESP 16; TEMP 36.6; O2SAT 95
[2024-08-17] MEDS: DICLOFENAC POTASSIUM 50 MG 50 EACH PO (21:56)
[2024-08-17 21:57] LABS: Appearance Urine Clear; Color Urine Yellow; Glucose Urine UA Negative (Negative); Leukocyte Esterase Urine Trace (Negative); Nitrite Urine Negative (Negative); Specific Gravity - Urine 1.015 (1.005-1.025); UMIC TRIGGER UACC YES; Urine Blood Negative (Negative); Urine Ketones Negative (Negative); Urine Protein Negative (Neg-Trace)
[2024-08-17 22:02] LABS: Amphetamine Screen Urine Not Detected (Not Detect); Bacteria Urine None Seen (None Seen); Barbiturates, Urine Not Detected (Not Detect); Benzodiazepines Screen Urine POSITIVE (Not Detect); Buprenorphine Scr Not Detected (Not Detect); Cannabinoid Screen Urine Not Detected (Not Detect); Cocaine Screen Urine Not Detected (Not Detect); Fentanyl, urine Not Detected (Not Detect); Hyaline Casts Urine 0-2 /LPF (0-2); Methadone Screen, Urine Not Detected (Not Detect); Opiate Screen Urine Not Detected (Not Detect); Oxycodone Screen Urine Not Detected (Not Detect); Phencyclidine Screen Urine Not Detected (Not Detect); RBC Urine 0-2 /HPF (0-2); Squamous Epithelial Cell Urine 0-2 /HPF (0-2); WBC Urine 0-5 /HPF (0-5)
[2024-08-17 22:08] VITALS: BP 160/68; PULSE 64
[2024-08-17] MEDS: Propranolol HCL LA 60 MG CAP.SA.24H PO (22:08)
[2024-08-17 22:25] VITALS: BP 160/68; PULSE 64; RESP 16; O2SAT 98
[2024-08-18 06:05] VITALS: BP 125/55; PULSE 56; RESP 16; TEMP 36.8; O2SAT 92
[2024-08-18] MEDS: Omeprazole 20 MG CAPSULE.DR 40 MG PO (08:44)
[2024-08-18] MEDS: Gabapentin 400 MG CAPSULE 800 MG PO ×4 (08:45→20:21)
[2024-08-18] MEDS: amLODIPine Besylate 10 MG TABLET PO (08:45)
[2024-08-18] MEDS: ALPRAZolam 0.5 MG TABLET 1 MG PO ×3 (08:45→20:21)
[2024-08-18] MEDS: Baclofen 20 MG TABLET PO ×2 (08:46→20:21)
[2024-08-18] MEDS: DULoxetine HCl 60 MG CAPSULE.DR PO (08:46)
[2024-08-18] MEDS: Lidocaine 4 % Patch ADH..PATCH 1 PATCH TRANSDERMA (08:47)
[2024-08-18] MEDS: Cholecalciferol (Vitamin D3) 10 MCG TABLET PO (09:17)
[2024-08-18] MEDS: Levothyroxine Sodium 125 MCG TABLET PO (09:18)
--- NOTE | 2024-08-18 10:25 | ECG_ITS ---
Test Reason : prolonged qtc Blood Pressure : */* mmHG Vent. Rate : 52 BPM Atrial Rate : 52 BPM P-R Int : 168 ms QRS Dur : 88 ms QT Int : 472 ms P-R-T Axes : -10 -19 61 degrees QTcB Int : 438 ms Sinus bradycardia Otherwise normal ECG When compared with ECG of 17-Jun-2024 14:34, Left anterior fascicular block is no longer Present Referred By: Birdie Lee Electronically Signed By: Desmond Montero
[2024-08-18] MEDS: traMADoL HCL 50 MG TABLET PO (14:16)
[2024-08-18 17:26] VITALS: BP 140/74; PULSE 92; RESP 18; TEMP 36.9; O2SAT 93
[2024-08-18] MEDS: Albuterol/Iprat 2.5/0.5MG 3 ML AMPUL.NEB INHALE (17:30)
[2024-08-18 17:32] VITALS: PULSE 56; RESP 16; O2SAT 97
[2024-08-18 17:35] VITALS: BMI 30.6
--- NOTE | 2024-08-18 17:38 | PC.NURSE ---
pt refused flu vaccine at this time
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
[2024-08-18 19:40] VITALS: RESP 16; TEMP 37.2; O2SAT 94
[2024-08-18] MEDS: Albuterol Sulfate 90 MCG 8 GM INHALER 2 PUFF INHALE (20:16)
[2024-08-18 20:18] VITALS: BP 153/72; PULSE 58
[2024-08-18] MEDS: Propranolol HCL LA 60 MG CAP.SA.24H PO (20:18)
[2024-08-18] MEDS: Acetaminophen 325 MG TABLET 650 MG PO (20:21)
[2024-08-18] MEDS: DICLOFENAC POTASSIUM 50 MG 50 EACH PO (20:46)
[2024-08-18] MEDS: Melatonin 3 MG TABLET PO (20:47)
[2024-08-19] MEDS: Levothyroxine Sodium 125 MCG TABLET PO (05:42)
[2024-08-19] MEDS: traMADoL HCL 50 MG TABLET PO ×2 (06:47→15:51)
[2024-08-19] MEDS: Omeprazole 20 MG CAPSULE.DR 40 MG PO (06:48)
[2024-08-19 07:56] VITALS: BP 109/58; PULSE 60; RESP 14; TEMP 36.8; O2SAT 90
[2024-08-19] MEDS: ALPRAZolam 0.5 MG TABLET 1 MG PO ×3 (08:47→20:59)
[2024-08-19] MEDS: Acetaminophen 325 MG TABLET 650 MG PO ×2 (08:47→20:59)
[2024-08-19] MEDS: amLODIPine Besylate 10 MG TABLET PO (08:47)
[2024-08-19] MEDS: Albuterol Sulfate 90 MCG 8 GM INHALER 2 PUFF INHALE ×3 (08:48→16:56)
[2024-08-19] MEDS: Gabapentin 400 MG CAPSULE 800 MG PO ×4 (08:48→21:00)
[2024-08-19] MEDS: Baclofen 20 MG TABLET PO ×2 (08:48→21:00)
[2024-08-19] MEDS: Cholecalciferol (Vitamin D3) 10 MCG TABLET PO (08:49)
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
[2024-08-19] MEDS: DULoxetine HCl 60 MG CAPSULE.DR PO (10:20)
--- NOTE | 2024-08-19 15:25 | MHC.CLN ---
RE: CONSULT HT 5'9 WT 207# IBW 145#+/-10% PT IS 143% IBW INDICATES OBESE FOR HT; BMI 30.6 PT REPORTED 20# WT LOSS IN 2 MONTHS PREVIOUS WT HX REVEALS: 93.8KG (08/18/24) 99.79KG (06/02/24) PT WITH 6% NONSIGNIFICANT WT LOSS X 3 MONTHS DIET REGULAR PLAN: MONITOR PO INTAKE CLOSELY IF PO <25% X 3 DAYS; RECOMMEND ADDING NUTRITION SUPPLEMENT NO NEW ORDERS AT THIS TIME
[2024-08-19] MEDS: DICLOFENAC POTASSIUM 50 MG 50 EACH PO (20:53)
[2024-08-19 20:57] VITALS: BP 174/85; PULSE 65; RESP 16; TEMP 36.6; O2SAT 95
[2024-08-19] MEDS: Melatonin 3 MG TABLET PO (21:00)
[2024-08-19] MEDS: Propranolol HCL LA 60 MG CAP.SA.24H PO (21:01)
[2024-08-19] MEDS: Nicotine Polacrilex 2 MG GUM BUCCAL (21:08)
[2024-08-19] MEDS: Zolpidem Tartrate 5 MG TABLET 10 MG PO (21:08)
[2024-08-19] MEDS: hydrOXYzine HCL 25 MG TABLET PO (21:08)
[2024-08-19] MEDS: Lidocaine 4 % Patch ADH..PATCH 1 PATCH TRANSDERMA (21:32)
[2024-08-20] MEDS: Omeprazole 20 MG CAPSULE.DR 40 MG PO (06:23)
[2024-08-20] MEDS: Levothyroxine Sodium 125 MCG TABLET PO (06:32)
[2024-08-20] MEDS: traMADoL HCL 50 MG TABLET PO ×3 (06:38→20:55)
[2024-08-20 07:30] VITALS: BP 141/76; PULSE 53; RESP 16; TEMP 36.8; O2SAT 89
[2024-08-20] MEDS: Baclofen 20 MG TABLET PO ×2 (08:44→20:43)
[2024-08-20] MEDS: Cholecalciferol (Vitamin D3) 10 MCG TABLET PO (08:44)
[2024-08-20 08:45] VITALS: BP 141/76
[2024-08-20] MEDS: amLODIPine Besylate 10 MG TABLET PO (08:45)
[2024-08-20] MEDS: ALPRAZolam 0.5 MG TABLET 1 MG PO ×3 (08:45→20:41)
[2024-08-20] MEDS: Gabapentin 400 MG CAPSULE 800 MG PO ×4 (08:45→20:44)
[2024-08-20] MEDS: DICLOFENAC POTASSIUM 50 MG 50 EACH PO ×3 (08:46→20:55)
[2024-08-20] MEDS: Acetaminophen 325 MG TABLET 650 MG PO ×2 (08:46→20:43)
[2024-08-20] MEDS: DULoxetine HCl 60 MG CAPSULE.DR PO (08:46)
[2024-08-20] MEDS: Albuterol Sulfate 90 MCG 8 GM INHALER 2 PUFF INHALE ×2 (08:49→13:56)
[2024-08-20] MEDS: guaiFENesin LA 600 MG TAB.ER.12H PO (14:41)
--- NOTE | 2024-08-20 16:14 | P.PNPSI_ITS ---
Subjective Subjective Date of Service: 08/20/24 Reason For Visit: SI Interim History: irritable, labile, entitled, angry. demanding double her current xanax dosing. pt became escalated and unable to engage in productive dialogue. per staff, dep/anx 10. i want recovery, i don't want to . Mental Status Exam Mental Status Exam Narrative: Pt is alert and oriented; behavior is variable; dressed in casual attire; mood is irritable; eye contact appropriate; Speech is variable; thought process is organized and goal directed; Thought content is on xanax; otherwise pertinent to relevant topics and without any delusional content, paranoid ideations or grandiosity; affect labile. no SI/HI/VH/AH expressed. Diagnostics Vital Signs (24Hr): Vital Signs - 24 hr 08/19/24 20:57 08/20/24 07:30 08/20/24 08:45 Temperature 97.9 F 98.2 F Pulse Rate 65 53 Respiratory Rate 16 16 Blood Pressure 174/85 H 141/76 H 141/76 H Pulse Oximetry 95 89 L Oxygen Delivery Method Room Air Room Air BMI result Body Mass Index 30.6 Labs 08/17/24 17:29 08/17/24 17:29 Medications Medications Current Medications Acetaminophen (Acetaminophen 325 Mg Tablet) 650 mg PO BID [facility] Last Admin: 08/20/24 08:46 Dose: 650 mg Al Hydroxide/Mg Hydroxide (Magnesium Hydrox/Alum Hydrox 30 Ml Oral.Susp) 30 ml PO Q6H PRN PRN Reason: Heartburn/Nausea Albuterol Sulfate (Albuterol Sulfate 90 Mcg 8 Gm Inhaler) 2 puff INHALE RQ4H PRN PRN Reason: Wheezing Last Admin: 08/20/24 13:56 Dose: 2 puff Albuterol Sulfate (Albuterol Sulfate 90 Mcg 8 Gm Inhaler) 4 puff INHALE RQ4H WHILE AWAKE [facility] Last Admin: 08/20/24 14:04 Dose: Not Given Alprazolam (Alprazolam 0.5 Mg Tablet) 1 mg PO TID [facility] Last Admin: 08/20/24 14:02 Dose: 1 mg Amlodipine Besylate (Amlodipine Besylate 10 Mg Tablet) 10 mg PO DAILY [facility]; Protocol Last Admin: 08/20/24 08:45 Dose: 10 mg Baclofen (Baclofen 20 Mg Tablet) 20 mg PO BID [facility] Last Admin: 08/20/24 08:44 Dose: 20 mg Duloxetine HCl (Duloxetine Hcl 60 Mg Capsule.) 60 mg PO DAILY [facility] Last Admin: 08/20/24 08:46 Dose: 60 mg Gabapentin (Gabapentin 400 Mg Capsule) 800 mg PO QID [facility] Last Admin: 08/20/24 13:57 Dose: 800 mg Guaifenesin (Guaifenesin La 600 Mg Tab.Er.12h) 600 mg PO BID PRN PRN Reason: cough Last Admin: 08/20/24 14:41 Dose: 600 mg Hydroxyzine HCl (Hydroxyzine Hcl 25 Mg Tablet) 25 mg PO Q6H PRN PRN Reason: Anxiety Last Admin: 08/19/24 21:08 Dose: 25 mg Levothyroxine Sodium (Levothyroxine Sodium 125 Mcg Tablet) 125 mcg PO DAILY@0600 [facility] Last Admin: 08/20/24 06:32 Dose: 125 mcg Lidocaine (Lidocaine 4 % Patch Adh..Patch) 2 patch TRANSDERMA DAILY [facility] Magnesium Hydroxide (Milk Of Magnesia 30 Ml Oral.Susp) 30 ml PO DAILY PRN PRN Reason: Constipation Melatonin (Melatonin 3 Mg Tablet) 3 mg PO BEDTIME [facility] Last Admin: 08/19/24 21:00 Dose: 3 mg Nicotine Polacrilex (Nicotine Polacrilex 2 Mg Gum) 2 mg BUCCAL Q1H PRN PRN Reason: Nicotine Cravings Last Admin: 08/19/24 21:08 Dose: 2 mg Pt Own (Diclofenac Potassium 50 Mg Tablet) 50 mg PO BID PRN PRN Reason: Pain Last Admin: 08/19/24 20:53 Dose: 50 mg Omeprazole (Omeprazole 20 Mg Capsule.) 40 mg PO DAILY@0630 [facility] Last Admin: 08/20/24 06:23 Dose: 40 mg Propranolol HCl (Propranolol Hcl La 60 Mg Cap.Sa.24h) 60 mg PO BEDTIME [facility]; Protocol Last Admin: 08/19/24 21:01 Dose: 60 mg Tramadol HCl (Tramadol Hcl 50 Mg Tablet) 50 mg PO TID PRN PRN Reason: Pain (Scale Score 4-6) Last Admin: 08/20/24 11:19 Dose: 50 mg Trazodone HCl (Trazodone Hcl 50 Mg Tablet) 50 mg PO BEDTIME MRX1 PRN PRN Reason: Insomnia Vitamin D (Cholecalciferol (Vitamin D3) 10 Mcg Tablet) 10 mcg PO DAILY [facility] Last Admin: 08/20/24 08:44 Dose: 10 mcg Zolpidem Tartrate (Zolpidem Tartrate 5 Mg Tablet) 10 mg PO BEDTIME PRN PRN Reason: Insomnia Last Admin: 08/19/24 21:08 Dose: 10 mg Allergies Allergies Allergy/AdvReac Type Severity Reaction Status Date / Time No Known Allergies Allergy Verified 08/17/24 15:50 Assessment & Plan Assessment & Plan (1) Homeless single person: Status: Acute Code(s): Z59.00 - Homelessness unspecified (2) Post traumatic stress disorder (PTSD): Status: Acute Code(s): F43.10 - Post-traumatic stress disorder, unspecified (3) Major depressive disorder, recurrent severe without psychotic features: Status: Acute Code(s): F33.2 - Major depressive disorder, recurrent severe without psychotic features (4) Fibromyalgia: Status: Acute Code(s): M79.7 - Fibromyalgia (5) Cocaine use disorder: Status: Acute Code(s): F14.10 - Cocaine abuse, uncomplicated (6) Cannabis use disorder: Status: Acute Code(s): F12.90 - Cannabis use, unspecified, uncomplicated Plan 08/19: continue outpt meds for now. pt appears to have unreasonable expectations for social work help, such as obtaining a place in a six month program. SW working with pt on options. 08/20: demanding, labile, irritable, entitled on subject of xanax. otherwise calm and reasonable. undermining therapeutic milieu. if behavior continues, T/C administrative discharge. applying for [employer] respite. Reason for continued inpatient stay Substantial Risk for: stable for discharge Time Spent With Patient Time: Total time managing care of this patient today __35__ minutes.
--- NOTE | 2024-08-20 19:09 | PC.NURSE ---
Declined to sign releases of information and flu shot.
[2024-08-20 20:00] VITALS: BP 133/66; PULSE 59; RESP 16; TEMP 36.2; O2SAT 99
[2024-08-20] MEDS: Melatonin 3 MG TABLET PO (20:41)
[2024-08-20] MEDS: Propranolol HCL LA 60 MG CAP.SA.24H PO (20:42)
[2024-08-21] MEDS: Omeprazole 20 MG CAPSULE.DR 40 MG PO (05:50)
[2024-08-21] MEDS: Levothyroxine Sodium 125 MCG TABLET PO (05:51)
[2024-08-21 07:00] VITALS: BMI 23.9
[2024-08-21 07:10] VITALS: BP 126/60; PULSE 50; RESP 14; TEMP 36.5; O2SAT 95
[2024-08-21] MEDS: Albuterol Sulfate 90 MCG 8 GM INHALER 4 PUFF INHALE ×2 (08:14→17:27)
[2024-08-21] MEDS: Albuterol Sulfate 90 MCG 8 GM INHALER 2 PUFF INHALE ×3 (08:51→20:24)
[2024-08-21] MEDS: DULoxetine HCl 60 MG CAPSULE.DR PO (08:52)
[2024-08-21] MEDS: Cholecalciferol (Vitamin D3) 10 MCG TABLET PO (08:52)
[2024-08-21] MEDS: Acetaminophen 325 MG TABLET 650 MG PO ×2 (08:52→20:15)
[2024-08-21] MEDS: ALPRAZolam 0.5 MG TABLET 1 MG PO ×3 (08:52→20:14)
[2024-08-21 08:53] VITALS: BP 126/70
[2024-08-21] MEDS: Gabapentin 400 MG CAPSULE 800 MG PO ×4 (08:53→20:13)
[2024-08-21] MEDS: traMADoL HCL 50 MG TABLET PO ×2 (08:53→20:17)
[2024-08-21] MEDS: amLODIPine Besylate 10 MG TABLET PO (08:53)
[2024-08-21] MEDS: Baclofen 20 MG TABLET PO ×2 (08:54→20:17)
[2024-08-21] MEDS: DICLOFENAC POTASSIUM 50 MG 50 EACH PO ×2 (08:55→20:25)
[2024-08-21] MEDS: Lidocaine 4 % Patch ADH..PATCH 2 PATCH TRANSDERMA (09:39)
[2024-08-21] MEDS: guaiFENesin LA 600 MG TAB.ER.12H PO (13:08)
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
[2024-08-21 20:00] VITALS: BP 126/70; PULSE 66; TEMP 36.3; O2SAT 92
[2024-08-21] MEDS: Melatonin 3 MG TABLET PO (20:11)
[2024-08-21 20:16] VITALS: BP 135/64; PULSE 66
[2024-08-21] MEDS: Propranolol HCL LA 60 MG CAP.SA.24H PO (20:16)
[2024-08-22] MEDS: Levothyroxine Sodium 125 MCG TABLET PO (05:42)
[2024-08-22] MEDS: Omeprazole 20 MG CAPSULE.DR 40 MG PO (05:42)
[2024-08-22] MEDS: DICLOFENAC POTASSIUM 50 MG 50 EACH PO ×2 (05:56→12:38)
[2024-08-22] MEDS: traMADoL HCL 50 MG TABLET PO (05:56)
[2024-08-22 07:30] VITALS: BP 130/63; PULSE 59; RESP 16; TEMP 36.9; O2SAT 91
[2024-08-22] MEDS: Gabapentin 400 MG CAPSULE 800 MG PO ×2 (09:08→12:35)
[2024-08-22 09:09] VITALS: BP 130/63
[2024-08-22] MEDS: Cholecalciferol (Vitamin D3) 10 MCG TABLET PO (09:09)
[2024-08-22] MEDS: amLODIPine Besylate 10 MG TABLET PO (09:09)
[2024-08-22] MEDS: ALPRAZolam 0.5 MG TABLET 1 MG PO (09:09)
[2024-08-22] MEDS: Acetaminophen 325 MG TABLET 650 MG PO (09:10)
[2024-08-22] MEDS: DULoxetine HCl 60 MG CAPSULE.DR PO (09:10)
[2024-08-22] MEDS: Baclofen 20 MG TABLET PO (09:10)
[2024-08-22] MEDS: Albuterol Sulfate 90 MCG 8 GM INHALER 2 PUFF INHALE ×2 (09:11→12:35)
[2024-08-22] MEDS: Lidocaine 4 % Patch ADH..PATCH 2 PATCH TRANSDERMA (12:28)
== END 2024-08-22 13:27 | disposition other institution (70) | DRG 751 ==
LOC: HO.ED 20:53 → HO.PADLT16 08-18 16:03
PROVIDERS: Nurse Practitioner Family; Admitting Provider Psychiatry & Neurology Psychiatry; Emergency Provider Emergency Medicine Emergency Medical Services; PCP Internal Medicine; Visit Provider Psychiatry & Neurology Psychiatry
DX: F33.2 Major depressive disorder, recurrent severe without psychotic features (principal); F12.90 Cannabis use, unspecified, uncomplicated; F14.10 Cocaine abuse, uncomplicated; F43.10 Post-traumatic stress disorder, unspecified; M79.7 Fibromyalgia; Z59.02 Unsheltered homelessness; Z79.890 Hormone replacement therapy; Z79.899 Other long term (current) drug therapy
CPT/HCPCS: 36415; 80053; 80307; 81001; 85025; 93005; 99285; S9485

== ENCOUNTER → 2024-08-18 10:25 | Outpatient (BNV) | payer OTHER, SELFPAY | PROVIDERS: Admitting Provider Psychiatry & Neurology Psychiatry; Emergency Provider Emergency Medicine Emergency Medical Services; PCP Internal Medicine; Visit Provider Internal Medicine Cardiovascular Disease | DX: R00.1 Bradycardia, unspecified (principal) | CPT/HCPCS: 93010 ==

== ENCOUNTER → 2024-08-18 15:59 | Outpatient (BNV) | payer OTHER, SELFPAY | PROVIDERS: Admitting Provider Psychiatry & Neurology Psychiatry; Emergency Provider Emergency Medicine Emergency Medical Services; PCP Internal Medicine; Visit Provider Psychiatry & Neurology Psychiatry | DX: F33.2 Major depressive disorder, recurrent severe without psychotic features (principal); F43.11 Post-traumatic stress disorder, acute; Z59.00 Homelessness unspecified; M79.7 Fibromyalgia; F14.10 Cocaine abuse, uncomplicated; F12.90 Cannabis use, unspecified, uncomplicated | CPT/HCPCS: 99231; 99232; 99233 ==